=== PATIENT | female | born 1985 | race Caucasian/White ===

== ENCOUNTER 2022-12-22 10:37 | Emergency (ER) | payer BC, OTHER, SELFPAY ==
[2022-12-22 10:59] VITALS: BP 125/83; PULSE 87; RESP 16; TEMP 36.4; O2SAT 100
--- NOTE | 2022-12-22 11:30 | ED.URI ---
HPI - URI/Sore Throat General Chief Complaint: Upper Respiratory Infection Stated Complaint: wants strep test Time Seen by Provider: 12/22/22 11:30 Source: patient, RN notes reviewed and old records reviewed Mode of arrival: ambulatory Limitations: no limitations History of Present Illness HPI Narrative: 37-year-old female who presents to [facility] with complaints of low-grade fever and headache since . Patient reports that she has been running temperature of 99-100F since with no acute sore throat or cough noted. Patient reports that she has been taking Tylenol for her complaints of headache and fevers. Patient reports that her daughter tested positive for strep at her pediatricians office on . MD elicited complaint: cough and sore throat Onset (ago): day(s) (2) Related Data Allergies Allergy/AdvReac Type Severity Reaction Status Date / Time Penicillins Allergy Rash Verified 12/22/22 11:29 Review of Systems Review of Systems: CONSTITUTIONAL: Reports malaise, chills, sweats, or fever. EYES: Denies visual changes, redness, or discharge. ENT: Reports rhinorrhea, congestion, sinus pain,no otalgia positive for sore throat. CARDIOVASCULAR: Denies chest pain, palpitations, or edema. RESPIRATORY: Reports cough.? Denies dyspnea. GASTROINTESTINAL: Denies abdominal pain, nausea, vomiting, diarrhea SKIN: Denies rash or itching. MUSCULOSKELETAL: Denies myalgia. NEUROLOGIC: positive headache. All systems reviewed & are unremarkable except as noted in HPI and below PMFSH Past Medical History Medical History (Updated 12/22/22 @ 20:50 by Madina Ryder NP) History of prediabetes Social History Social History (Updated 12/22/22 @ 20:50 by Madina Ryder NP) Smoking status: Never smoker Alcohol intake: current Alcohol use details: rare social Substance use type: does not use Living arrangements: with family Gender identity (if verbalized by the patient): Female Comments At time of signature, agree with nursing past medical, surgical, social and family history. There is no relevant family history pertinent to the presenting complaint Exam Narrative: GENERAL: Well-appearing, well-nourished, and in no acute distress. HEAD: Normocephalic EYES: PERRLA, conjunctivae clear ENT: Nares clear, turbinates edematous and erythematous, clear discharge. Mucous membranes moist. TM pearly marti with dull light reflex bilaterally; no tragal tenderness. Oropharynx erythematous without lesions. Tonsils red enlarged and without exudate, no drooling, no hoarseness, no trismus, uvula midline.some post nasal drainage noted. NECK: Supple. lymphadenopathy CHEST: Clear to auscultation, breath sounds equal. No wheezing, rhonchi, rales, or stridor. No respiratory distress, speaks in full sentences. HEART: Regular rate and rhythm. No murmur heard. SKIN: Warm, dry, no rash. NEURO: Alert and oriented x3. PSYCH: Normal mood and affect Course Course Emergency Course: Patient is aware of diagnosis, understands and agrees to treatment plan.? Anticipatory guidance given.? Patient agrees to follow-up as directed and is aware of reasons to seek care at the emergency department. Portions of this record may have been created with voice recognition software Level of Care: Express Care Visit Vital Signs Vital signs: Vital Signs Temperature 36.4 C 12/22/22 10:59 Pulse Rate 87 12/22/22 10:59 Respiratory Rate 16 12/22/22 10:59 Blood Pressure 125/83 12/22/22 10:59 Pulse Oximetry 100 12/22/22 10:59 Temperature 36.4 C 12/22/22 10:59 Pulse Rate 87 12/22/22 10:59 Respiratory Rate 16 12/22/22 10:59 Blood Pressure 125/83 12/22/22 10:59 Pulse Oximetry 100 12/22/22 10:59 Reviewed MDM - URI/Sore Throat MDM Narrative Medical decision making narrative: Differential diagnosis considered: Drummond virus, strep pharyngitis, allergic rhinitis, upper respiratory
== END 2022-12-22 11:57 | disposition home or self-care (01) ==
PROVIDERS: Emergency Provider Registered Nurse
DX: J02.0 Streptococcal pharyngitis (principal)
CPT/HCPCS: 87880; 99213; G0463

== ENCOUNTER 2023-03-22 08:30 | Outpatient (CLI) | payer BC, SELFPAY ==
[2023-03-23 08:41] LABS: Alanine Aminotransferase 18 U/L (6-35); Albumin Level 4.2 g/dL (3.5-5.1); Alkaline Phosphatase 74 U/L (38-126); Anion Gap 7 mmol/L (8-16); Aspartate Amino Transferase 29 U/L (14-36); Bilirubin,Total 0.8 mg/dL (0.2-1.3); Blood Urea Nitrogen 10 mg/dL (7-17); Calcium 8.6 mg/dL (8.4-10.2); Carbon Dioxide 28 mmol/L (22-30); Chloride 105 mmol/L (98-107); Cholesterol 183 mg/dL (0-200); Estimated Glomerular Filt Rate > 60; Glucose 104 mg/dL (65-110); HDL Direct 45 mg/dL; Potassium 4.4 mmol/L (3.4-5.0); Sodium 140 mmol/L (137-145); Triglycerides 105 mg/dL (<150)
[2023-03-23 08:51] LABS: LDL Cholesterol Direct 102 mg/dL
[2023-03-23 08:53] LABS: Basophils Percent Auto 0.4 % (0.2-1.2); Eosinophils Percent Auto 0.7 % (0-4.4); Hematocrit 41.9 % (37.0-47.0); Hemoglobin 13.6 g/dL (12.0-15.0); Immature Granulocyte Absolute 0.01 K/mm3 (0.00-0.031); Immature Granulocyte Percent A 0.2 % (0-0.5); Lymphocytes Absolute Auto 1.83 K/mm3 (0.9-3.2); Lymphocytes Percent Auto 32.8 % (18.3-44.2); Mean Corpuscular HGB Conc 32.5 g/dl (32-36); Mean Corpuscular Hemoglobin 29.6 pg (26-34); Mean Corpuscular Volume 91.3 fl (80-100); Monocytes Absolute Auto 0.4 K/mm3 (0.1-0.6); Neutrophils Absolute Auto 3.3 K/mm3 (1.3-6.7); Neutrophils Percent Auto 58.9 % (45.5-73.1); Platelet Count Result 251 k/mm3 (150-375); Red Blood Count 4.59 M/mm3 (4.2-5.4); Red Cell Distribution Width 13.3 % (11.5-14.5); White Blood Count 5.6 K/mm3 (4.5-10.0)
[2023-03-23 09:15] LABS: Hemoglobin A1C 6.2 % (<5.7)
[2023-03-23 09:40] LABS: Creatinine Urine 106.8 mg/dL
[2023-03-23 09:59] LABS: MALB Creatinine Ratio < 5.6 mg/g (0-30); Microalbumin Urine Random < 6.0 mg/L (0-16.7)
== END 2023-03-22 08:31 | disposition home or self-care (01) ==
LOC: ANHGOSHLAB 08:31
PROVIDERS: PCP Internal Medicine; Visit Provider Nurse Practitioner
DX: R73.03 Prediabetes (principal)
CPT/HCPCS: 36415; 80053; 80061; 82043; 83036; 84443; 85025

== ENCOUNTER 2023-05-06 11:06 | Emergency (ER) | payer BC, SELFPAY ==
[2023-05-06 11:21] VITALS: BP 132/90; PULSE 69; RESP 16; TEMP 36.4; O2SAT 100
--- NOTE | 2023-05-06 11:41 | ED.URI ---
HPI - URI/Sore Throat General Chief Complaint: Upper Respiratory Infection Stated Complaint: Chest / Cold / Flu Systems Time Seen by Provider: 05/06/23 11:25 Source: patient Mode of arrival: ambulatory Limitations: no limitations History of Present Illness HPI Narrative: Cassie is a 37-year-old female patient presenting to the clinic today with complaints of cough, runny nose, body aches, chills, and fever x4 days. She reports highest fever was 102? F. no known exposure to anyone with COVID, flu, or strep. Did take 2 at home COVID test and both of them were negative. MD elicited complaint: sore throat and nasal congestion Related Data Allergies Allergy/AdvReac Type Severity Reaction Status Date / Time Penicillins Allergy Rash Verified 05/06/23 11:34 Review of Systems Review of Systems: Pertinent positives per HPI. Patient denies any rash, headache, visual changes, dizziness, shortness of breath, chest pain, palpitations, nausea, vomiting, diarrhea, constipation, abdominal pain, or any urinary issues. [facility] Past Medical History Medical History History of prediabetes Prediabetes Family History Family History Mother Diabetes mellitus Hypertension Sibling Depression Anxiety Grandparent Diabetes mellitus Social History Social History Smoking status: Never smoker Alcohol intake: current Alcohol use details: rare social Substance use type: does not use Lack of Transportation: No Lack of Food: Never True Current Housing: I Have Housing Concerned About Future Housing: No Difficulty Paying Gas/Electric Bills: No Difficulty Paying for Meds: No Currently Unemployed: No Education: Master's Degree or Higher Difficulty w/ Childcare or Family Care: No Living arrangements: with family Gender identity (if verbalized by the patient): Female Agree to blood products: No Comments At the time of my signature, I reviewed and agree with the nursing past medical, surgical, social, and family history. There is no relevant family history pertinent to the patient complaint. Exam Narrative: General: Well-developed, well nourished, in no apparent distress Head: Normocephalic, atraumatic Eyes: Pupils equally round and reactive to light bilaterally, EOM intact, sclera and conjunctive clear, no discharge, lids normal Ears: TMs intact and congested, ear canals clear, no drainage, grossly hearing normal. Nose: Nares patent, clear nasal discharge, no inflammation, no sinus tenderness. Mouth: Oral pharynx red without lesions or masses, good dentition, MMM. Neck: Supple, trachea midline, no enlargement of anterior or posterior cervical nodes, no thyroid masses or goiter palpable. Cardio: Regular rate and rhythm, s1 and s2 normal, no murmur appreciated. Resp: Clear to auscultation bilaterally, no rhonchi, rales, wheezing or rubs Course Course Emergency Course: Portions of this record may have been created with voice recognition software. Level of Care: Express Care Visit Vital Signs Vital signs: Vital Signs Temperature 36.4 C L 05/06/23 11:21 Pulse Rate 69 05/06/23 11:21 Respiratory Rate 16 05/06/23 11:21 Blood Pressure 132/90 05/06/23 11:21 Pulse Oximetry 100 05/06/23 11:21 Temperature 36.4 C L 05/06/23 11:21 Pulse Rate 69 05/06/23 11:21 Respiratory Rate 16 05/06/23 11:21 Blood Pressure 132/90 05/06/23 11:21 Pulse Oximetry 100 05/06/23 11:21 Vital signs reviewed MDM - URI/Sore Throat MDM Narrative Medical decision making narrative: At the time of visit patient is resting comfortably on the exam table. Strep screen and influenza testing was performed. Strep was negative however influenza a was positive. Patient does not meet criteria for Tamiflu as her symptoms
== END 2023-05-06 11:47 | disposition home or self-care (01) ==
PROVIDERS: Emergency Provider Nurse Practitioner Family; PCP Nurse Practitioner
DX: J10.1 Influenza due to other identified influenza virus with other respiratory manifestations (principal); R73.03 Prediabetes
CPT/HCPCS: 87081; 87804; 87880; 99213; G0463

== ENCOUNTER 2024-03-11 08:32 | Outpatient (CLI) | payer BC, SELFPAY ==
[2024-03-11 20:09] LABS: Basophils Percent Auto 0.4 % (0.2-1.2); Eosinophils Percent Auto 0.4 % (0-4.4); Hematocrit 41.6 % (37.0-47.0); Hemoglobin 13.4 g/dL (12.0-15.0); Immature Granulocyte Absolute 0.01 K/mm3 (0.00-0.031); Immature Granulocyte Percent A 0.2 % (0-0.5); Lymphocytes Absolute Auto 1.76 K/mm3 (0.9-3.2); Lymphocytes Percent Auto 34.3 % (18.3-44.2); Mean Corpuscular HGB Conc 32.2 g/dl (32-36); Mean Corpuscular Hemoglobin 29.5 pg (26-34); Mean Corpuscular Volume 91.6 fl (80-100); Mean Platelet Volume 12.1 fl (7.4-10.4); Monocytes Absolute Auto 0.5 K/mm3 (0.1-0.6); Neutrophils Absolute Auto 2.9 K/mm3 (1.3-6.7); Neutrophils Percent Auto 55.7 % (45.5-73.1); Platelet Count Result 243 k/mm3 (150-375); Red Blood Count 4.54 M/mm3 (4.2-5.4); Red Cell Distribution Width 13.6 % (11.5-14.5); White Blood Count 5.1 K/mm3 (4.5-10.0)
[2024-03-11 20:10] LABS: Hemoglobin A1C 5.6 % (<5.7)
[2024-03-11 20:17] LABS: Alanine Aminotransferase 11 U/L (6-35); Albumin Level 4.2 g/dL (3.5-5.1); Alkaline Phosphatase 60 U/L (38-126); Anion Gap 7 mmol/L (4-12); Aspartate Amino Transferase 27 U/L (14-36); Bilirubin,Total 0.7 mg/dL (0.2-1.3); Blood Urea Nitrogen 9 mg/dL (7-17); Calcium 9.1 mg/dL (8.4-10.2); Carbon Dioxide 25 mmol/L (22-30); Chloride 109 mmol/L (98-107); Cholesterol 160 mg/dL (0-200); Estimated Glomerular Filt Rate > 60; Glucose 109 mg/dL (65-110); HDL Direct 41 mg/dL; Potassium 4.2 mmol/L (3.4-5.0); Sodium 141 mmol/L (137-145); Triglycerides 72 mg/dL (<150)
[2024-03-11 20:28] LABS: LDL Cholesterol Direct 104 mg/dL
== END 2024-03-11 08:33 | disposition home or self-care (01) ==
LOC: ANHGOSHLAB 08:36
PROVIDERS: PCP Nurse Practitioner; Visit Provider Nurse Practitioner
DX: R73.03 Prediabetes (principal); Z13.220 Encounter for screening for lipoid disorders; Z13.29 Encounter for screening for other suspected endocrine disorder
CPT/HCPCS: 36415; 80053; 80061; 83036; 85025

== ENCOUNTER 2024-03-20 08:42 | Outpatient (CLI) | payer BC, SELFPAY | END 2024-03-20 08:43 | disposition home or self-care (01) | LOC: ANHGOSHLAB 08:43 | PROVIDERS: PCP Internal Medicine; Visit Provider Nurse Practitioner | DX: R53.83 Other fatigue (principal) | CPT/HCPCS: 36415; 82306; 84443 ==

== ENCOUNTER 2024-12-29 19:42 | Emergency (ER) | payer BC, SELFPAY ==
[2024-12-29 20:01] VITALS: BP 115/80; PULSE 64; RESP 16; TEMP 36.9; O2SAT 100
--- NOTE | 2024-12-29 20:12 | ED.SKABFB ---
HPI - Skin/Abscess/Foreign Bdy General Chief complaint: Skin/Abscess/Foreign Body Stated complaint: Cellulitis Source: patient and RN notes reviewed Mode of arrival: ambulatory Limitations: no limitations History of Present Illness HPI narrative: Patient is a 39-year-old female who presents to the [facility] complaints of redness, and warmth to the right side of her face. She states that she woke up with the erythema, warmth, and tenderness. She states that her symptoms are similar to that she has experienced in the past with cellulitis. She denies any drainage. Denies recent fever. Related Data Home Medications ?Medication ?Instructions ?Recorded ?Confirmed ?Last Taken ?Type ferrous sulfate 137 mg (45 mg 137 mg PO DAILY 09/25/24 09/25/24 Unknown History iron) tablet,extended release Allergies Allergy/AdvReac Type Severity Reaction Status Date / Time Penicillins Allergy Rash Verified 12/29/24 20:13 Review of Systems Review of Systems: CONSTITUTIONAL: Denies fever, chills, or sweats. EYES: Denies visual changes, redness, or discharge. ENT: Denies otalgia and sore throat CARDIOVASCULAR: Denies chest pain, palpitations, or edema. RESPIRATORY: Denies cough or dyspnea. GASTROINTESTINAL: Denies abdominal pain, nausea, vomiting, or diarrhea. GENITOURINARY: Denies dysuria or hematuria. SKIN: Reports erythematous rash to right side of face. MUSCULOSKELETAL: Denies back pain, joint pain, or myalgia. NEUROLOGIC: Denies headache, numbness, or weakness. Pertinent positives per HPI. PENDING SALE TO [facility] Past Medical History Medical History Prediabetes History of prediabetes Family History Family History Mother Diabetes mellitus Hypertension Sibling Depression Anxiety Grandparent Diabetes mellitus Social History Social History Smoking status: Never smoker Alcohol intake: current Alcohol use details: rare social Substance use type: does not use Do You Feel Safe in your Home?: Yes Lack of Transportation: No Lack of Food: Never True Current Housing: I Have Housing Concerned About Future Housing: No Difficulty Paying Gas/Electric Bills: No Difficulty Paying for Meds: No Currently Unemployed: No Education: Master's Degree or Higher Difficulty w/ Childcare or Family Care: No Living arrangements: with family Gender identity (if verbalized by the patient): Female Agree to blood products: No Comments At the time of my signature, I reviewed and agree with the nursing past medical, surgical, social, and family history. There is no relevant family history pertinent to the patient complaint. Exam Narrative: GENERAL: This is a well-nourished, well-developed patient, in no apparent distress. HEAD: normocephalic, atraumatic. EYES: Sclera clear/white. Vision is grossly intact. EARS: External ears normal. Hearing grossly intact. NOSE: External nose normal with no obvious nasal discharge, nares without redness, no rhinorrhea. THROAT: Mucous membranes moist, posterior pharynx clear. NECK: Neck supple, non-tender without lymphadenopathy, masses or thyromegaly. CARDIOVASCULAR: Regular rate and rhythm without murmurs, gallops, or rubs. RESPIRATORY: Clear to auscultation. Breath sounds equal bilaterally. No wheezes, rales, or rhonchi. GASTROINTESTINAL: Abdomen soft, non-tender, nondistended. Bowel sounds are active. No hepato-splenomegaly, or palpable masses. No guarding. SKIN: Maculopapular erythematous rash that is warm and tender; consistent with facial cellulitis. NEURO: awake, alert, and oriented to person, place and time. There were no obvious focal neurologic abnormalities. Course Course Level of Care: Express Care Visit Vital Signs Vital signs: Vital Signs Temperature 98.5 F 12/29/24 20:01 Pulse Rate 64 12/29/24 20:01 Respiratory Rate 16 12/29/24 20:01 Blood Pressure 115/80 12/29/24 20:01 Pulse Oximetry 100 12/29/24 20:01 Temperature 98.5 F 12/29/24 20:01 Pulse Rate 64 12/29/24 20:01 Respiratory Rate 16 12/29/24 20:01 Blood Pressure 115/80 12/29/24 20:01 Pulse Oximetry 100 12/29/24 20:01 Reviewed MDM - Skin/Abscess/Foreign Bdy MDM Narrative Medical decision making narrative: Clean with soap and water only; Avoid using alcohol and peroxide. Elevate the affected area if possible Alternate Tylenol/ibuprofen for as needed for pain Acetaminophen(Tylenol) 650-1000mg every 4-6hours with max of 4000mg/day. Nonsteroidal anti-inflammatory agent (NSAIDs-ibuprofen): 400mg every 4-6hours with max 2400mg/day Take antibiotic until it's gone. Please schedule a follow up visit with your personal physician for further evaluation and treatment within 3-5days OR if your symptoms persist, change or worsen significantly before you can contact your personal physician then please, without delay, go to the emergency department for further evaluation. Differential Diagnosis Differential diagnosis: Likely urticaria, cellulitis, eczema, impetigo and contact dermatitis Discharge Plan Discharge Clinical Impression: Cellulitis of face Patient Disposition: Home, Self-Care Condition: Stable Instructions: Cellulitis (ED) Additional Instructions: Clean with soap and water only; Avoid using alcohol and peroxide. Elevate the affected area if possible Alternate Tylenol/ibuprofen for as needed for pain Acetaminophen(Tylenol) 650-1000mg every 4-6hours with max of 4000mg/day. Nonsteroidal anti-inflammatory agent (NSAIDs-ibuprofen): 400mg every 4-6hours with max 2400mg/day Take antibiotic until it's gone. Please schedule a follow up visit with your personal physician for further evaluation and treatment within 3-5days OR if your symptoms persist, change or worsen significantly before you can contact your personal physician then please, without delay, go to the emergency department for further evaluation. Patient Language: Citizen Of [place] Prescriptions: New doxycycline hyclate 100 mg capsule 100 mg PO BID 10 Days Qty: 20 0RF No Action ferrous sulfate 137 mg (45 mg iron) tablet extended release 137 mg PO DAILY Mounjaro 5 mg/0.5 mL pen injector 5 mg subcut WEEKLY Qty: 2 0RF Follow-up/Referrals: PHYSICIAN,STRANNER [Primary Care Provider] - Time of Disposition: 20:16
== END 2024-12-29 20:17 | disposition home or self-care (01) ==
PROVIDERS: Emergency Provider Nurse Practitioner
DX: L03.211 Cellulitis of face (principal); R73.03 Prediabetes
CPT/HCPCS: 99213; G0463

== ENCOUNTER 2025-04-16 08:13 | Outpatient (CLI) | payer BC, SELFPAY ==
--- OUTSIDE RECORDS SUMMARY | 2025-04-16 08:20 | XMS_ITS | Continuity of Care Document ---
Author Organization [facility] Address [address] [place] [address] Phone Care Team Providers Care Tip Inserter Name Role Phone Magdaleno Hewitt MD Unavailable Unavailable Medications Medication Instructions Dosage Effective Dates (start - stop) Status Comments Zovia E (28) 1 mg-35 mcg Tab take 1 tablet by ORAL route every day - No Longer Active Advance Directives Directive Yes / No Effective Date File Name No Information Encounters Encounter Description Practice Location Reason(s) For Visit Diagnoses Date Provider Providers Copied on Encounter [facility], [address] [place], [address], [place] tel:[phone] [facility] Main No Information Marcelina Dolan. [address] [place], [address], [place]. tel:[phone] Family History Family Member Type Diagnosis Age At Onset No Information Payers Payer name Insurance type Covered republican ID Authoriza tion(s) No Information Social History Type Description Quantity Date Captured Comments Sex Female Smoking Status No Information Chief Complaint And Reason For Visit No Information Reason For Referral Reason For Referral No Information History Of Present Illness Encounter Date Complaint History Of Prese nt Illness No Information Functional Status Date Functional Assessmen t No Information Instructions Date Instruction Additional Infor mation No Information Assessments Type Assessment Date No Information Patient Care Teams Name Effective Dates (start - stop) Status Members No Information
--- OUTSIDE RECORDS SUMMARY | 2025-04-16 08:20 | XMS_ITS | Continuity of Care Document ---
Author Organization [facility] Address [address] [place] [address] Phone Care Team Providers Care Career Development Specialist Name Role Phone MD GIOVANY, JHONATHAN Unavailable Unavailable Advance Directives Directive Yes / No Effective Date File Name No Information Encounters Encounter Description Practice Location Reason(s) For Visit Diagnoses Date Provider Providers Copied on Encounter [facility], [address], [address], tel:[phone] [facility] No Information 6 MD JHONATHAN ADAIR. [address] [facility] [address], [place], [id number] , . tel:[phone] Referring Provider: THANG RUTLEDGE, [address] [place], [address]. tel:[phone] Family History Family Member Type Diagnosis Age At Onset No Information Payers Payer name Insurance type Covered libertarian ID Authoriza tion(s) [facility] [id number] Social History Type Description Quantity Date Captured Comments Sex Female Smoking Status No Information Chief Complaint And Reason For Visit No Information History Of Present Illness Encounter Date Complaint History Of Prese nt Illness No Information Instructions Date Instruction Additional Infor mation No Information Assessments Type Assessment Date No Information
[2025-04-16 16:35] LABS: Basophils Percent Auto 0.4 % (0.2-1.2); Eosinophils Percent Auto 0.4 % (0-4.4); Hematocrit 43.7 % (37.0-47.0); Hemoglobin 13.7 g/dL (12.0-15.0); Immature Granulocyte Absolute 0.01 K/mm3 (0.00-0.031); Immature Granulocyte Percent A 0.2 % (0-0.5); Lymphocytes Absolute Auto 1.76 K/mm3 (0.9-3.2); Lymphocytes Percent Auto 38.3 % (18.3-44.2); Mean Corpuscular HGB Conc 31.4 g/dl (32-36); Mean Corpuscular Hemoglobin 30.2 pg (26-34); Mean Corpuscular Volume 96.3 fl (80-100); Mean Platelet Volume 11.6 fl (7.4-10.4); Monocytes Absolute Auto 0.4 K/mm3 (0.1-0.6); Monocytes Percent Auto 7.6 % (2.6-8.5); Neutrophils Absolute Auto 2.4 K/mm3 (1.3-6.7); Neutrophils Percent Auto 53.1 % (45.5-73.1); Platelet Count Result 211 k/mm3 (150-375); Red Blood Count 4.54 M/mm3 (4.2-5.4); White Blood Count 4.6 K/mm3 (4.5-10.0)
[2025-04-16 17:35] LABS: Alanine Aminotransferase 14 U/L (6-35); Albumin Level 4.3 g/dL (3.5-5.1); Alkaline Phosphatase 45 U/L (38-126); Anion Gap 7 mmol/L (4-12); Aspartate Amino Transferase 58 U/L (14-36); Blood Urea Nitrogen 10 mg/dL (7-17); Calcium 9.1 mg/dL (8.4-10.2); Carbon Dioxide 25 mmol/L (22-30); Chloride 107 mmol/L (98-107); Cholesterol 163 mg/dL (0-200); Estimated Glomerular Filt Rate > 60; Glucose 96 mg/dL (65-110); HDL Direct 60 mg/dL; Sodium 139 mmol/L (137-145); Triglycerides 89 mg/dL (<150)
[2025-04-16 17:46] LABS: LDL Cholesterol Direct 64 mg/dL
[2025-04-16 18:26] LABS: Vitamin D 25 Hydroxy 30.5 ng/mL
[2025-04-16 20:43] LABS: Hemoglobin A1C 5.6 % (<5.7)
== END 2025-04-16 08:14 | disposition home or self-care (01) ==
LOC: ANHGOSHLAB 08:14
PROVIDERS: Visit Provider Nurse Practitioner
DX: R73.03 Prediabetes (principal); R53.83 Other fatigue
CPT/HCPCS: 36415; 80053; 80061; 82306; 83036; 85025

== ENCOUNTER 2025-04-21 09:10 | Outpatient (CLI) | payer BC, SELFPAY ==
--- OUTSIDE RECORDS SUMMARY | 2025-04-21 09:16 | XMS_ITS | Continuity of Care Document ---
Author Name [facility] Organization [facility] Care Team Providers Care Junior Accounting Clerk Name Role Phone [facility] Unavailable Unavailable Problems Combined list of problems from Department of Defense and Veterans Affairs facilities. It does not include entries that were removed or entered in error. Problem Status Onset Date Problem Type Date of Resolution Comments Source Personal history of gestational diabetes Active 6 Condition DoD Pilar cyst Active 6 Condition [facility] Type 2 diabetes mellitus without complications Active Condition DoD CERVICAL POLYPS Active Condition [facility] Cervix Sample Taken For Pap Smear Inactive Condition [facility] NORMAL ROUTINE HISTORY AND PHYSICAL ADULT (18-65) Inactive Condition [facility] visit for: administrative purpose Inactive Condition [facility] visit for: issue repeat prescription Inactive Condition [facility] ASTIGMATISM - REGULAR Active Condition [facility] REFRACTIVE ERROR - MYOPIA Active Condition [facility] PREGLAUCOMA OCULAR HYPERTENSION Active Condition [facility] FINGER SPRAIN RIGHT MIDDLE FINGER DIP Inactive Condition [facility] visit for: issue medical certificate Inactive Condition immunizations u p to date; pt to have ppd placed today by immunization clinic [facility] Patient Counseling: Inactive Condition DoD Allergies, Adverse Reactions, Alerts Combined list of allergies from Department of Defense and Veterans Affairs facilities. It does not include entries that were removed or entered in error. Substance Category Reaction Severity Reaction type Status Date Reported Comments Source Penicillins Propensity to adverse reactions to substance Unknown Active 3 Unknown Organizati on Immunizations Combined list of available immunizations from the Department of Defense and Veterans Affairs facilities. Immunization Series Date Given Administered By Site Reaction Lot Number CVX Code Drug Master At Arms Status Comments Source COVID-19, mRNA, LNP-S, PF, 100 mcg or 50 mcg dose 2020 ALUL, () Not Given COVID-19, mRNA, LNP-S, PF, 100 mcg or 50 mcg dose DoD Influenza, injectable, quadrivalent, preservative free 1 2020 Unknown, Provider RUFINA TorresKlpal (SKB) complet ed Influenza , injectabl e, quadrival ent, preservat jorge free [facility] COVID Vaccine Moderna 2020 zzLef t Arm [id number] complet ed COVID Vaccine Moderna 12/16/20 Given Ambulat ory Pharmac y SARS-COV-2 (COVID-19) vaccine, mRNA, spike protein, LNP, preservative free, 100 mcg or 50 mcg dose 1 2020 Unknown, Provider [id number] Moderna [employer] (MOD) complet ed SARS-COV- 2 (COVID-19 ) vaccine, mRNA, spike protein, LNP, preservat jorge free, 100 mcg or 50 mcg dose DoD COVID Vaccine Moderna 2019 [facility] Arm [id number] complet ed COVID Vaccine Moderna 11/16/20 Given Ambulat ory Pharmac y SARS-COV-2 (COVID-19) vaccine, mRNA, spike protein, LNP, preservative free, 100 mcg or 50 mcg dose 1 2019 Unknown, Provider [id number] 207 Moderna [employer] (MOD) complet ed SARS-COV- 2 (COVID-19 ) vaccine, mRNA, spike protein, LNP, preservat jorge free, 100 mcg or 50 mcg dose DoD influenza, injectable, quadrivalent- pf 2019 [facility] Arm [id number] 150 Seqirus complet ed influenza , injectabl e, quadrival ent-pf 08/26/20 Given Ambulat ory Pharmac y Influenza, injectable, quadrivalent, preservative free 1 2019 Unknown, Provider [id number] 206 150 Seqirus (SEQ) complet ed Influenza , injectabl e, quadrival ent, preservat jorge free DoD influenza, injectable, quadrivalent- pf 2018 [facility] Arm [id number] 150 Seqirus complet ed influenza , injectabl e, quadrival ent-pf 08/28/19 Given Ambulat ory Pharmac y Influenza, injectable, quadrivalent, preservative free 1 2018 Unknown, Provider [id number] 150 Seqirus (SEQ) complet ed Influenza , injectabl e, quadrival ent, preservat jorge free DoD Marshallese Encephalitis IM 2018 [facility] Arm [id number] 134 Valneva complet ed Marshallese Encephali tis IM 05/07/19 Given Ambulat ory Pharmac y Marshallese Encephalitis vaccine for intramuscular administratio n 1 2018 Unknown, Provider [id number] 134 Valneva (YOSSI) complet ed Marshallese Encephali tis vaccine for intramusc ular administr ation DoD Marshallese Encephalitis IM 2018 zzTimur Arm [id number] 134 Valneva complet ed Marshallese Encephali tis IM 12/30/18 Given Ambulat ory Pharmac y Marshallese Encephalitis vaccine for intramuscular administratio n 1 2018 Unknown, Provider [id number] 134 Valneva (YOSSI) complet ed [place]ese Encephali tis vaccine for intramusc ular administr ation DoD influenza, seasonal, injectable 2015 zzLef t Arm [id number] 141 Seqirus complet ed influenza , seasonal, injectabl e 08/10/16 Given Ambulat ory Pharmac y tetanus, diphtheria, acellular pertu is 2015 zzLef t Arm [id number] 115 [facility] complet ed tetanus, diphtheri a, acellular pertussis 08/10/16 Given Ambulat ory Pharmac y tetanus toxoid, reduced diphtheria toxoid, and acellular pertu is vaccine, adsorbed 1 2015 Unknown, Provider [id number] 115 [facility] (SKB) complet ed tetanus toxoid, reduced diphtheri a toxoid, and acellular pertussis vaccine, adsorbed DoD Influenza, seasonal, injectable 1 2015 Unknown, Provider [id number] 141 Seqirus (SEQ) complet ed Influenza , seasonal, injectabl e DoD tuberculin purified protein derivative 2014 zzLef t Arm [id number] 96 sanofi pasteur complet ed Patient Tolerance : Negative Ambulat ory Pharmac y tuberculin skin test; purified protein derivative solution, intradermal 1 2014 Unknown, Provider [id number] 96 Sanofi Pasteur (PMC) complet ed tuberculi n skin test; purified protein derivativ e solution, intraderm al DoD influenza, seasonal, injectable [facility] [id number] 141 sanofi pasteur complet ed influenza , seasonal, injectabl e 12/21/13 Given Ambulat ory Pharmac y typhoid Vi capsular polysaccharid e vac 2013 zzLef t Arm [id number] sanofi pasteur complet ed typhoid Vi capsular polysacch aride vac 12/21/13 Given Ambulat ory Pharmac y hepatitis A adult vaccine 2013 [facility] Arm [id number] 52 GlaxoSmithKli ne complet ed hepatitis A adult vaccine 12/21/13 Given Ambulat ory Pharmac y hepatitis A vaccine, adult dosage 1 2013 Unknown, Provider [id number] 52 SmithKline (SKB) complet ed hepatitis A vaccine, adult dosage DoD typhoid Vi capsular polysaccharid e vaccine 1 2013 Unknown, Provider [id number] Sanofi Pasteur ([facility]) complet ed typhoid Vi capsular polysacch aride vaccine DoD Influenza, seasonal, injectable 1 2013 Unknown, Provider [id number] 141 Sanofi Pasteur (PMC) complet ed Influenza , seasonal, injectabl e DoD tetanus, diphtheria, acellular pertu is 2009 TRANSCR IBED 115 complet ed tetanus, diphtheri a, acellular pertussis 08/16/10 Given Ambulat ory Pharmac y tetanus toxoid, reduced diphtheria toxoid, and acellular pertu is vaccine, adsorbed 1 2009 Unknown, Provider 115 Transcribed (TRS) complet ed tetanus toxoid, reduced diphtheri a toxoid, and acellular pertussis vaccine, adsorbed DoD tuberculin purified protein derivative 2009 TRANSCR IBED 96 complet ed Patient Tolerance : Negative Ambulat ory Pharmac y tuberculin skin test; purified protein derivative solution, intradermal 1 2009 Unknown, Provider 96 Transcribed (TRS) complet ed tuberculi n skin test; purified protein derivativ e solution, intraderm al DoD varicella virus vaccine 2009 TRANSCR IBED 21 complet ed varicella virus vaccine 03/06/10 Given Ambulat ory Pharmac y varicella virus vaccine 1 2009 Unknown, Provider 21 Transcribed (TRS) complet ed varicella virus vaccine DoD measles/mumps /rubella virus vaccine 2008 TRANSCR IBED 03 complet ed measles/m umps/rube lla virus vaccine 03/23/09 Given Ambulat ory Pharmac y measles, mumps and rubella virus vaccine 1 2008 Unknown, Provider 03 Transcribed (TRS) complet ed measles, mumps and rubella virus vaccine DoD tuberculin purified protein derivative 2008 TRANSCR IBED 96 complet ed Patient Tolerance : Negative Ambulat ory Pharmac y tuberculin skin test; purified protein derivative solution, intradermal 1 2008 Unknown, Provider 96 Transcribed (TRS) complet ed tuberculi n skin test; purified protein derivativ e solution, intraderm al DoD tuberculin purified protein derivative 2006 zzLef t Arm [id number] 96 sanofi pasteur complet ed Patient Tolerance : Negative Ambulat ory Pharmac y tuberculin skin test; purified protein derivative solution, intradermal 1 2006 Unknown, Provider [id number] 96 Sanofi Pasteur (PMC) complet ed tuberculi n skin test; purified protein derivativ e solution, intraderm al DoD tuberculin purified protein derivative 2002 zzLef t Arm [id number] 96 sanofi pasteur complet ed Patient Tolerance : Negative Ambulat ory Pharmac y meningococcal polysaccharid e (MPSV4) 2002 zzLef t Arm [id number] sanofi pasteur complet ed meningoco ccal polysacch aride (MPSV4) 03/10/03 Given Ambulat ory Pharmac y tetanus-dipht h toxoids (Td) adult/adol 2002 zzLef t Arm [id number] 09 sanofi pasteur complet ed tetanus-d iphth toxoids (Td) adult/ado l 03/10/03 Given Ambulat ory Pharmac y hepatitis B pediatric/ado lescent 2002 zzLef t Arm [id number] 08 GlaxoSmithKli ne complet ed hepatitis B pediatric /adolesce nt 03/10/03 Given Ambulat ory Pharmac y hepatitis B vaccine, pediatric or pediatric/ado lescent dosage 1 2002 Unknown, Provider [id number] 08 BrianKline (SKB) complet ed hepatitis B vaccine, pediatric or pediatric /adolesce nt dosage DoD tetanus and diphtheria toxoids, adsorbed, preservative free, for adult use (2 Lf of tetanus toxoid and 2 Lf of diphtheria toxoid) 1 2002 Unknown, Provider [id number] 09 Sanofi Pasteur (PMC) complet ed tetanus and diphtheri a toxoids, adsorbed, preservat jorge free, for adult use (2 Lf of tetanus toxoid and 2 Lf of diphtheri a toxoid) DoD meningococcal polysaccharid e vaccine (MPSV4) 1 2002 Unknown, Provider [id number] 32 Sanofi Pasteur (PMC) complet ed meningoco ccal polysacch aride vaccine (MPSV4) DoD tuberculin skin test; purified protein derivative solution, intradermal 1 2002 Unknown, Provider [id number] 96 Sanofi Pasteur (PMC) complet ed tuberculi n skin test; purified protein derivativ e solution, intraderm al DoD measles/mumps /rubella virus vaccine 1990 Transcr ibed 03 Unknown complet ed measles/m umps/rube lla virus vaccine 12/22/90 Given Ambulat ory Pharmac y poliovirus vaccine, live, oral 1990 zzLef t Arm 02 complet ed polioviru s vaccine, live, oral 12/22/90 Given Ambulat ory Pharmac y trivalent poliovirus vaccine, live, oral 5 1990 Unknown, Provider 02 () complet ed trivalent polioviru s vaccine, live, oral DoD measles, mumps and rubella virus vaccine 2 1990 Unknown, Provider Transcr ibed 03 Other (OTH) complet ed measles, mumps and rubella virus vaccine DoD measles/mumps /rubella virus vaccine 1987 Transcr ibed 03 Unknown complet ed measles/m umps/rube lla virus vaccine 11/21/87 Given Ambulat ory Pharmac y measles, mumps and rubella virus vaccine 1 1987 Unknown, Provider Transcr ibed 03 Other (OTH) complet ed measles, mumps and rubella virus vaccine DoD Encounters Combined list of: 1) Encounters from Department of Veterans Affairs facilities going backup to the last 18 months, not all VA inpatient encounters are included; 2) Encounters from the Department of Defense facilities going backup to 280 months. Location Location Details Encounter Type Encounter Number Reason For Visit Attending Provider ADM Date DC Date Status Disposition Source [employer]([facility]) TELE CONSULT [id number] [employer] SEAMUS Santana 11/04 [facility]) [facility]ss Team [facility]) OUTPATIENT [id number] discuss immuniz ation GIDEON IVEY 02/25 Released w/o Limitations [employer]) [employer](DG C GME Team H) OUTPATIENT [id number] might have broken lt middle finger WALE ERAZO 05/18 Released w/o Limitations [employer](D [facility] GME Team H) [employer]([facility] C Optometry ) OUTPATIENT [id number] eye exam MONY REDDY 08/17 Released w/o Limitations [employer]([facility] Optomet ry) [employer] TELE CONSULT [id number] Notes Entered by: THANIA BALTAZAR 20 Oct 2013 1031 ------- ------- ------- ------- -- VIRTUAL COMMUNI CATION RX REFILL WALE ERAZO 10/20 [employer]([facility] GME Team H) [employer]) TELE CONSULT [id number] Notes Entered by: JUNIOR GREEN 22 Oct 2013 1402 ------- ------- ------- ------- -- VIRTUAL COMMUNI CATION MESSAGE WALE ERAZO 10/22 [employer]([facility] GME Team H) [employer]([facility]) OUTPATIENT [id number] PAP SMEAR JUNIOR FLORES 11/19 Released w/o Limitations [employer]([facility] GME Team H) [employer]([facility]) OUTPATIENT [id number] f/u prev issue JUNIOR FLORES 11/25 Released w/o Limitations [employer]([facility] GME Team H) [employer]) TELE CONSULT [id number] Notes Entered by: Lane FLORES 26 Nov 2013 1443 ------- ------- ------- ------- -- Normal papa NELI THOMPSON 11/26 Referred for Appointment [employer]([facility] GME Team H) [employer]([facility]) TELE CONSULT [id number] Notes Entered by: JUNIOR GREEN 30 Nov 2013 1402 ------- ------- ------- ------- -- for; to (do) Centers AINSLEY [employer] WALE VIRAMONTES Ashley 11/30 [employer](D [facility] GME Team H) [employer]([facility] TELE CONSULT [id number] Notes Entered by: MARIA GUADALUPE WRIGHT 02 Dec 2013 1323 ------- ------- ------- ------- -- Bx result GRAHAM KEARNSSSDevante Gant 12/02 [employer](D [facility] GME Team H) [employer]([facility] IDo Not Use) TELE CONSULT [id number] Notes Entered by: Lane HEREDIA 10 Dec 2013 1555 ------- ------- ------- ------- -- Pap results KENDRA HEREDIA 12/10 Referred for Appointment [employer]([facility]Tea m IDo Not Use) [employer]([facility] C Infectiou s Disease) OUTPATIENT [id number] travel clinic JEANMAREI BERTRAND 12/15 Released w/o Limitations [employer](D C Infecti ous Disease ) [employer]([facility] K[facility] Not Use) TELE CONSULT [id number] Notes Entered by: Bere TANG 29 Apr 2015 1505 ------- ------- ------- ------- -- POSITIV E HOME PREGNAN CY TEST JC RODRIGUEZ 04/29 Referred for Appointment [employer]([facility]a [facility] KDo Not Use) [employer]([facility] C Obstetric s) TELE CONSULT [id number] Notes Entered by: ADRIA DARLING 23 May 2015 1029 ------- ------- ------- ------- -- ER F/U June 15yo 8wk preg w vag bleedin g + cramps no better today BALJIT GILMORE 05/23 [employer]([facility]) [employer]([facility] C Obstetric s) OUTPATIENT [id number] 8wks/ER follow up shanita seay BALJIT GILMORE 05/23 Released w/o Limitations [employer](D [facility]) [employer]([facility] C Obstetric s) TELE CONSULT [id number] Notes Entered by: ADRIA DARLING 26 May 2015 1505 ------- ------- ------- ------- -- 29yo called for HCG results post SAB BALJIT GILMORE 05/26 [employer](D [facility]st[facility]) [employer]([facility] C_ GME_Team IDo Not Use) TELE CONSULT [id number] Notes Entered by: ROMAN YANG 01 Nov 2015 1342 ------- ------- ------- ------- -- Request for labs JULES CHAN 11/01 Released to Self Care [employer]([facility] GME_Tea m IDo Not Use) [employer]([facility] C_ GME_Team IDo Not Use) OUTPATIENT [id number] NATHAN Davidson 11/28 Released w/o Limitations [employer](D GM_FH GME_Tea m IDo Not Use) [employer]([facility] C_ GME_Team IDo Not Use) TELE CONSULT [id number] Notes Entered by: NATHAN SMITH 07 Dec 2015 0913 ------- ------- ------- ------- -- Lab results IRVING GIBSON 12/07 Referred for Appointment [employer](D GM_FH GME_Tea m IDo Not Use) [employer]([facility] C_ GME_Team IDo Not Use) TELE CONSULT [id number] Notes Entered by: GEORGES FELIX 14 Feb 2016 0815 ------- ------- ------- ------- -- Request for pregnan cy test confirm DENNIS Ruff 02/13 Referred for Appointment [employer](D GMC_FH GME_Tea m IDo Not Use) [employer](DG C Obstetric s) OUTPATIENT [id number] dating jesu macho MAY KELLEY Jennifer 03/12 Released w/o Limitations [employer](D [facility] Obst[facility]) [employer](DG C_FH GME_Team IDo Not Use) OUTPATIENT [id number] NOB 10 WEEKS RADHA VARNER 03/21 Released w/o Limitations [employer](D GMC_FH GME_Tea m IDo Not Use) [employer](DGM C_FH GME_Team IDo Not Use) TELE CONSULT [id number] Notes Entered by: ZEE RODRIGUEZ 22 Mar 2016 1454 ------- ------- ------- ------- -- OB APPOINT JC WOOD 03/22 Referred for Appointment [employer](D GMC_FH GME_Tea m IDo Not Use) [employer](DG C_FH GME_Team IDo Not Use) TELE CONSULT [id number] Notes Entered by: ERINN DAILEY BY Jennifer 26 Mar 2016 1625 ------- ------- ------- ------- -- Lab result RADHA VARNER 03/26 [employer](D GMC_FH GME_Tea m IDo Not Use) [employer](DG C_FH GME_Team IDo Not Use) TELE CONSULT [id number] Notes Entered by: ERINN DAILEY BY Jennifer 02 Apr 2016 1456 ------- ------- ------- ------- -- Lab results RADHA VARNER 04/02 [employer]([facility] [facility]_Tea m IDo Not Use) [employer]([facility] C_ GME_Team IDo Not Use) OUTPATIENT [id number] f/u gestati onal diabete s;needs RADHA Yi 04/03 Released w/o Limitations [employer]([facility] GME_Tea m IDo Not Use) [employer]([facility] C Diabetes Education ) OUTPATIENT [id number] Notes Entered by: Bere TORRES 05 Apr 2016 0711 ------- ------- ------- ------- -- Appt for gestati onal diabete s PATSY TORRES 04/05 Released w/o Limitations [employer]([facility] Diabete s Educati on) [employer]([facility] C Nutrition ) OUTPATIENT [id number] Gestati onal diabete s mellitu s in pregnan cy, unspeci fied control KIMBERLI SIEGEL I 04/06 Released w/o Limitations [employer]([facility] Nutriti on) [employer]([facility] C Obstetric s) OUTPATIENT [id number] Gestati onal diabete s mellitu s in pregnan cy, unspeci fied control CHRISTINA BURROUGHS 04/11 Released w/o Limitations [employer]([facility] Obstetr ics) [employer]([facility] C_ GME_Team IDo Not Use) OUTPATIENT [id number] LLUVIA 14 WEEKS 06 DAYS RADHA VARNER 04/20 Released w/o Limitations [employer]([facility] GME_Tea m IDo Not Use) [employer]([facility] C_ GME_Team IDo Not Use) TELE CONSULT [id number] Notes Entered by: ZEE RODRIGUEZ 24 Apr 2016 1317 ------- ------- ------- ------- -- OB APPOINT LESLYE DARDENAHMETTORITO Kebede 04/24 Referred for Appointment [employer](D [facility]FH GME_Tea m IDo Not Use) [employer]([facility] C Nutrition ) OUTPATIENT [id number] F/U GDM AMINAT CHAPINCITO ESPINAL 04/26 Released w/o Limitations [employer](D C Nutriti on) [employer]([facility] C Obstetric s) OUTPATIENT [id number] 18wks/N ew HROB/Tr lisa From CHRISTINA BURROUGHS 05/09 Released w/o Limitations [employer](D C Obstetr ics) [employer]([facility] C Obstetric s) OUTPATIENT [id number] 18weeks OTONIEL SPRING 05/17 Released w/o Limitations [employer](D [facility] Obstetr ics) [employer]([facility] C Nutrition ) OUTPATIENT [id number] F/U APPT CHAPINCITO ESPINAL 05/24 Released w/o Limitations [employer]([facility] Nutriti on) [employer]([facility] C Ophthalmo logy Clinic) OUTPATIENT [id number] Unspeci fied Pre-Exi sting diabete s Mellitu s in childbi [facility] WENDIE DUBOSE 05/25 Released w/o Limitations [employer]([facility] Ophthal mology Clinic) [employer]([facility] C Obstetric s) OUTPATIENT [id number] 19wks OTONIEL SPRING 05/25 Released w/o Limitations [employer](D [facility] Obst[facility] ics) [employer]([facility] C Obstetric s) OUTPATIENT [id number] 20weeks OTONIEL SPRING 05/31 Released w/o Limitations [employer](D [facility] Obstetr ics) [employer]([facility] C Obstetric s) OUTPATIENT [id number] 21weeks /hrob/G ADONAY ADORNO 06/06 Released w/o Limitations [employer](D [facility] Obstetr ics) [employer]([facility] C Nutrition ) OUTPATIENT [id number] F/U APPT CHAPINCITO ESPINAL Richard 06/18 Released w/o Limitations [employer]([facility] Nutriti on) [employer]([facility] C Obstetric s) OUTPATIENT [id number] 23+week s CHRISTINA BURROUGHS 06/22 Released w/o Limitations [employer]([facility] Obstetr ics) [employer]([facility] C Obstetric s) OUTPATIENT [id number] 24weeks /HROB/p er SHYANNE Gray 06/29 Released w/o Limitations [employer]([facility] Obstetr ics) [employer]([facility] C Antepartu m Testing Unit) OUTPATIENT [id number] Notes Entered by: JEANA ROSE 08 Jul 2016 1611 ------- ------- ------- ------- -- Triage walk in for hypogly cemia JEANA ROSE 07/08 Released w/o Limitations [employer]([facility] Antepar [place] Testing Unit) [employer]([facility] C Antepartu m Testing Unit) OUTPATIENT [id number] MEAGHAN GLASER 07/10 Released w/o Limitations [employer]([facility] Antepar katlin Testing Unit) [employer]([facility] C Obstetric s) OUTPATIENT [id number] 26+week s OSVALDO HARDIN 07/11 Released w/o Limitations [employer]([facility] Obstetr ics) [employer]([facility] C Gynecolog y) TELE CONSULT [id number] Notes Entered by: CHRISTINA BURROUGHS 18 Jul 2016 1310 ------- ------- ------- ------- -- Blood sugars CHRISTINA BURROUGHS 07/18 [employer]([facility] Gynecol ogy) [employer]([facility] C Obstetric s) OUTPATIENT [id number] 28weeks ADONAY SOTO 07/25 Released w/o Limitations [employer]([facility] Obstetr ics) [employer]([facility] C Gynecolog y) TELE CONSULT [id number] Notes Entered by: ANABEL PARK 02 Aug 2016 1629 ------- ------- ------- ------- -- Pt wants to know if glucose fax was receive d by clinic NADYA FARRIS 08/02 [employer]([facility] [place]ne[place]gy) [employer]([facility] C Gynecolog y) TELE CONSULT [id number] Notes Entered by: CALVIN SCHAFFER 08 Aug 2016 1408 ------- ------- ------- ------- -- See note YASMANI SALGADO 08/08 [employer](D [facility] [place]) [employer]([facility] C Antepartu m Testing Unit) TELE CONSULT [id number] Notes Entered by: TERI FARRIS 15 Aug 2016 1519 ------- ------- ------- ------- -- Blood glucose log review NADYA FARRIS 08/15 [employer]([facility] Antepar [place] Testing Unit) [employer]([facility] C Gynecolog y) TELE CONSULT [id number] Notes Entered by: CALVIN SCHAFFER 15 Aug 2016 1528 ------- ------- ------- ------- -- See Note NADYA FARRIS 08/15 [employer]([facility] [place]col [place]gy) [employer]([facility] C GME Team H) OUTPATIENT [id number] PRE PCS FREDRICK TABARES 08/20 Released w/o Limitations [employer](D [facility] FH GME Team H) [employer]([facility] C Nutrition ) OUTPATIENT [id number] F/U APPT CHAPINCITO ESPINAL 08/21 Released w/o Limitations [employer]([facility] Nutriti on) [employer]([facility] C Obstetric s) OUTPATIENT [id number] 32weeks CHRISTINA BURROUGHS 08/22 Released w/o Limitations [employer]([facility] Obstetr ics) [employer]([facility] GME Procedure ) OUTPATIENT [id number] [place] FREDRICK Mills 08/22 Released w/o Limitations [employer]([facility] GME Procedu re) [employer]([facility] Gynecolog y) OUTPATIENT [id number] Notes Entered by: CALVIN SCHAFFER T 24 Aug 2016 0857 ------- ------- ------- ------- -- ATU NST GDMA2 FAWN MANCERA 08/24 Released w/o Limitations [employer]([facility] Gynecol ogy) [employer]([facility] Antepartu m Testing Unit) OUTPATIENT [id number] Notes Entered by: CALVIN SCHAFFER T 28 Aug 2016 0825 ------- ------- ------- ------- -- ATU NST GDMA2 JEANA ROSE 08/28 Released w/o Limitations [employer]([facility] Antepar [place] Testing Unit) [employer]([facility] Antepartu m Testing Unit) OUTPATIENT [id number] Notes Entered by: CALVIN SCHAFFER T 31 Aug 2016 0824 ------- ------- ------- ------- -- ATU NST GDMA2 CLARY MILLIGAN 08/31 Released w/o Limitations [employer]([facility] Antepar [place] Testing Unit) [employer]([facility] Antepartu m Testing Unit) OUTPATIENT [id number] Notes Entered by: CALVIN SCHAFFER T 04 Sep 2016 0837 ------- ------- ------- ------- -- ATU NST GDMA2 JOSE ROBERTO FITZGERALD 09/04 Released w/o Limitations [employer]([facility] Antepar [place] Testing Unit) [employer]([facility] C Obstetric s) OUTPATIENT [id number] 34weeks NADYA FARRIS S 09/05 Released w/o Limitations [employer](D C Obstetr ics) [employer]([facility] C Antepartu m Testing Unit) OUTPATIENT [id number] Notes Entered by: CALVIN SCHAFFER T 07 Sep 2016 0900 ------- ------- ------- ------- -- ATU NST GDMA2 AMBROSIO SUH 09/07 Released w/o Limitations [employer]([facility] Antepar [place] Testing Unit) [employer]([facility] C Antepartu m Testing Unit) OUTPATIENT [id number] Notes Entered by: CALVIN SCHAFFER T 11 Sep 2016 0840 ------- ------- ------- ------- -- ATU NST GDMA2 LISA WOLF 09/11 Released w/o Limitations [employer]([facility] Antepar [place] Testing Unit) [employer]([facility] C Antepartu m Testing Unit) OUTPATIENT [id number] Notes Entered by: CALVIN SCHAFFER T 14 Sep 2016 0835 ------- ------- ------- ------- -- ATU NST GDMA2 MEAGHAN GLASER 09/14 Released w/o Limitations [employer]([facility] Antepar [place] Testing Unit) [employer]([facility] C Antepartu m Testing Unit) OUTPATIENT [id number] Notes Entered by: CALVIN SCHAFFER T 18 Sep 2016 0824 ------- ------- ------- ------- -- ATU NST GDMA2 SHYANNE NUÑEZ 09/18 Released w/o Limitations [employer]([facility] Antepar [place] Testing Unit) [employer]([facility] C Obstetric s) OUTPATIENT [id number] 35+week s NEVIN OGDEN 09/18 Released w/o Limitations [employer](D [facility] Obstetr ics) [employer]([facility] C Antepartu m Testing Unit) OUTPATIENT [id number] Notes Entered by: CALVIN SCHAFFER 21 Sep [id number] ------- ------- ------- ------- -- ATU NST GDMA2 BRENDAN, RODNEY Ramirez 09/21 Released w/o Limitations [employer]([facility] Antepar [place] Testing Unit) [employer]([facility] C Obstetric s) OUTPATIENT [id number] 36+4 NEVIN OGDEN 09/25 Released w/o Limitations [employer]([facility] ics) [employer]([facility] C Antepartu m Testing Unit) OUTPATIENT [id number] Notes Entered by: CALVIN SCHAFFER 25 Sep [id number] ------- ------- ------- ------- -- ATU NST GDMA2 NEVIN OGDEN 09/25 Released w/o Limitations [employer]([facility] Antepar [place] Testing Unit) [employer]([facility] C Antepartu m Testing Unit) OUTPATIENT [id number] Notes Entered by: CALVIN SCHAFFER 27 Sep 2016 0840 ------- ------- ------- ------- -- ATU NST GDMA2 KENNY SONG 09/27 Released w/o Limitations [employer]([facility] Antepar [place] Testing Unit) [employer]([facility] GME Team J) OUTPATIENT [id number] Notes Entered by: BRISSA FITZGERALD TTHERony Christopher 30 Sep 2016 0126 ------- ------- ------- ------- -- OB triage for r/o ROM JOSE ROBERTO FITZGERALD 09/30 Released w/o Limitations [employer]([facility] GME Team J) [employer]([facility] C Antepartu m Testing Unit) OUTPATIENT [id number] Notes Entered by: CALVIN SCHAFFER 02 Oct 2016 0837 ------- ------- ------- ------- -- ATU NST GDMA2 RCUZ DUNHAM 10/02 Released w/o Limitations [employer]([facility] [place] Testing Unit) [employer]([facility] C Obstetric s) OUTPATIENT [id number] 37+5wee eduar/NEVIN DEL VALLE 10/02 Released w/o Limitations [employer]([facility] [place]stetr ics) [employer]([facility] C Antepartu m Testing Unit) OUTPATIENT [id number] Notes Entered by: CALVIN SCHAFFER T 05 Oct 2016 0844 ------- ------- ------- ------- -- ATU NST GDMA2 ALE GUILLEN 10/05 Released w/o Limitations [employer]([facility] Ante[employer] [place] Testing Unit) [employer] DIRECT TO [facility] FROM OTHER THAN ER OR APU [id number] OSVALDO HARDIN Bere 10/07 DISCHARGED HOME [employer]([facility] C Obstetric s) OUTPATIENT [id number] 6 week follow up SHYANNE NUÑEZ 11/16 Released w/o Limitations [employer]([facility] [place]stetr ics) [employer]([facility] C Gynecolog y) TELE CONSULT [id number] Notes Entered by: Jennifer HYDE 28 Nov 2016 1514 ------- ------- ------- ------- -- Pap results SHYANNE NUÑEZ 11/28 [employer]([facility] Gynecol ogy) [employer] [facility]) OUTPATIENT [id number] follow up after failed glucose test JAVED BOWDEN 12/18 Released w/o Limitations [employer](W arrior Operati onal Medicin e) [employer](Dis ease Managemen t) OUTPATIENT [id number] pre-jennifer betes group class URSULA LIU L 12/25 Released w/o Limitations [employer](D isease Managem ent) [employer](Com prehensiv e Medicatio n Mgmt) OUTPATIENT [id number] Notes Entered by: MARCELLUS OLGUIN L 25 Dec 2016 1630 ------- ------- ------- ------- -- Prediab etes group class ARRON, KANU L 12/25 Released w/o Limitations [employer](C omprehe nsive Medicat ion Mgmt) [employer](War rior Operation al Medicine) TELE CONSULT [id number] Notes Entered by: JAVED BOWDEN 05 Jan 2017 0836 ------- ------- ------- ------- -- Prediab etic class DAYA STEPHENS 01/05 Other Not Elsewhere Classified [employer](W arrior Operati onal Medicin e) [employer](2MD G [facility] [employer] r) TELE CONSULT [id number] Notes Entered by: ELIANA OBRIEN 12 Mar 2018 0926 ------- ------- ------- ------- -- #AL: Lab Order Request ANGELIKA DIETRICH 03/12 Referred for Appointment [employer](2 MDG [facility] [place] [employer](2MD G [facility] [employer]) OUTPATIENT [id number] Pre-jennifer betic followu p/On FEML/Ms Lizzy Stallworth gave ok to book appt DES ROBERTSON 03/21 Released w/o Limitations [employer](2 MDG [facility] [place]) [employer](Dis ease Managemen t) OUTPATIENT [id number] health coachin geena prediab etes URSULA LIU L 03/26 Released w/o Limitations [employer](D isease Managem ent) MD Patricia([facility] A Team) OUTPATIENT [id number] Pt says physica l/refer al to kannano MIGUEL A Ashley 03/24 Released w/o Limitations [facility] ([facility] A Team) [facility] A Team) TELE CONSULT [id number] Notes Entered by: GRADY ZHENG 09 Apr 2019 1312 ------- ------- ------- ------- [facility] Other Not Elsewhere Classified [facility] ([facility] A Team) [facility]( [facility]) OUTPATIENT [id number] 2 Pilar cyst BRO DIALLO 04/29 Released w/o Limitations [facility] ([facility]) [facility]) TELE CONSULT [id number] Notes Entered by: STEPHANIE ALMAZAN 06 May 2019 1137 ------- ------- ------- ------- -- Marcy serna - STEPHANIE Reid 05/06 Released to Self Care [facility] ([facility]) [facility]( [facility]) OUTPATIENT [id number] follow up per BRO Watson 06/02 Released w/o Limitations [facility] ([facility]) [facility] A Team) OUTPATIENT [id number] 2 Pt says pink eye/x1d KELECHI Means 06/04 Released w/o Limitations [facility] ([facility] A Team) [facility]( [facility]) OUTPATIENT [id number] 0 f/u per BRO Watson 06/16 Released w/o Limitations [facility] ([facility]) [facility] A Team) TELE CONSULT [id number] Notes Entered by: DENNISE RINCON 07 Jul 2019 0741 ------- ------- ------- ------- -- Sinus issues [phone]/ [facility] BETTY GABRIEL 07/06 Advice Assessment [facility] ([facility] A Team) MD [facility] A Team) OUTPATIENT [id number] Notes Entered by: GRADY ZHENG 07 Jul 2019 1054 ------- ------- ------- ------- -- strep swab FREDRICK GAYTAN 07/07 Released w/o Limitations MD [facility] ([facility] A Team) [facility]) TELE CONSULT [id number] Notes Entered by: GLORIA RANDHAWA 30 Sep 2019 0836 ------- ------- ------- ------- -- MISC: PT REPORTS VOMITIN G X 4 DAYS/08 [phone]/ BETTY BEAL 09/29 Advice Assessment MD [facility] ([facility]) MD [facility] A Team) TELE CONSULT [id number] Notes Entered by: JAMILA CROW 06 Oct 2019 1447 ------- ------- ------- ------- -- MIGUEL A Draper 10/06 [facility] ([facility] A Team) [facility]) TELE CONSULT [id number] Notes Entered by: RUT PEGUERO 02 Sep 2020 1622 ------- ------- ------- ------- -- [facility] TJ NUNEZ 09/02 [facility] ([facility] Medicin e Clinic) [facility]) OUTPATIENT [id number] 7 REQ F2F FOR PAP SMEAR AND IUD REMOVAL ,SUPERV ISOR SAID PLACE HC MIGUEL A JUSTICE 09/20 Released w/o Limitations MD [facility] ([facility] BG) [facility]) OUTPATIENT [id number] 2 IUD removal MIGUEL A JUSTICE 09/20 [facility]ased w/o Limitations [facility]) TELE CONSULT [id number] Notes Entered by: JAMILA CROW 10 Oct 2020 1458 ------- ------- ------- ------- -- pap results JINADONAYEN 10/10 Other Not Elsewhere Classified [facility] ([facility]) [address] [place] [address] Jeanmarie WEBBER [facility]Azo tt [facility] [employer]) TELE CONSULT [id number] Notes Entered by: THANIA BEAULIEU 19 Jul 2021 1421 ------- ------- ------- ------- -- Order shalom De La O /Rich - - tsg JASON PADILLA 07/19 Released to Self Care [facility] Jeanmarie WEBBER [facility]S melody [facility] [employer]) [address] [place] [address] Jeanmarie WEBBER [facility])([employer] ecology) OUTPATIENT [id number] URSULA GRACE 08/01 Released w/o Limitations [address] [place] [address] Jeanmarie WEBBER [facility])(G balwindercosparkle gy) [address] [place] [address] Jeanmarie WEBBER [facility])(Azo [facility] Fam Res [employer]) OUTPATIENT [id number] Prediab etes check up/lab work JASON PADILLA 08/11 Released w/o Limitations [address] [place] [address] Group eJanmarie WEBBER [facility])(S melody [facility] [employer]) [address] [place] [address] Jeanmarie WEBBER [facility])(Nut [facility] Medicine) OUTPATIENT [id number] Prediab etes MARJ YOST 09/08 Released w/o Limitations [address] [place] [address] Jeanmarie WEBBER ([facility])(N utritio nal Medicin e) [address] [place] [address] Jeanmarie WEBBER [facility])(Sco tt [facility] Fam [employer]) TELE CONSULT [id number] Notes Entered by: SHADIA BRANTLEY RET 25 Sep 2021 1022 ------- ------- ------- ------- -- SX: Mole Left Leg Dermato logy Referra l/Schel by/ *p DANNI Abrams 09/25 Referred for Appointment [address] [place] [address] Jeanmarie WEBBER ([facility])(S cott [facility] Fam Res [employer]) [address] [place] [address] Jeanmarie EWAJohan ([facility])(Sco tt [facility] Fam Res [employer]) OUTPATIENT [id number] eval of painful mole on leg that is DAVION So 09/25 Released w/o Limitations [address] [place] [address] Jeanmarie EWAJohan ([facility])(S cott [facility] Fam Res [employer]) [address] [place] [address] [facility])([facility]) OUTPATIENT [id number] PreDiab etes and weight loss MARJ YOST 10/03 Released w/o Limitations [address] [place] [address] Jeanmarie B ([facility])(N utritio nal Medicin e) [address] [place] [address] Jeanmarie Johan [facility])(OF C Proc Clinic) OUTPATIENT [id number] 2 MINORS/ LEFT THIGH LESION VISHNU KU 10/16 Released w/o Limitations [address] [place] [address] Jeanmarie EWAB ([facility])(O [facility]) [address] [place] [address] Jeanmarie B [facility])(Sco tt [facility] Fam Res [employer]) TELE CONSULT [id number] Notes Entered by: VISHNU KU 24 Oct 2021 0804 ------- ------- ------- ------- -- Patholo SOFIA Burgos 10/24 Released to Self Care [address] [place] [address] Jeanmarie EWAB ([facility])(S cott [facility] Fam Res [employer]m Green) [address] [place] [address] Jaenmarie B ([facility])(Sco tt [facility] FAMRES [employer]m Blue) OUTPATIENT [id number] Notes Entered by: Francisca TREVINO 31 Oct 2021 1328 ------- ------- ------- ------- -- WALK IN/ STITCH REMOVAL MARJORIE LEE S 10/31 Released w/o Limitations [address] [place] [address] Jeanmarie Johan [facility]S cott [facility] FAMRES [employer]) [address] [place] [address] [facility])(Nut [facility] Medicine) OUTPATIENT [id number] weight loss MARJ YOST S 10/31 Released w/o Limitations [address] [place] [address] [facility])(N utritio nal Medicin e) [address] [place] [address] [facility])(Sco tt [facility] Fam Res [employer]m Green) OUTPATIENT [id number] F2F - Itchy ears and scalp x 3 days, MATT JONES 11/23 Released w/o Limitations [address] [place] [address] Jeanmarie Johan [facility])(S [facility] Fam Res [employer]m Green) [address] [place] [address] [facility])(Sco tt [facility] Fam Res [employer]m [employer]) OUTPATIENT [id number] fatigue and possibl e depress ion NASIR DE LA O 01/23 Released w/o Limitations [address] [place] [address] Jaenmarie Johan [facility])(S [facility] Fam Res [employer]) [address] [place] [address] [facility])(Sco tt [facility] Fam Res [employer]) TELE CONSULT [id number] Notes Entered by: NASIR DE LA O 26 Jan 2022 1648 ------- ------- ------- ------- -- Lab follow up NASIR DE LA O 01/[address] [place] [address] Jeanmarie WEBBER [facility])(S [facility] Fam Res [employer]m Green) Procedures Combined list of: 1) Procedures from Department of Veterans Affairs facilities going back up to thelast 18 months, not all VA non-surgical procedures are included; 2) All procedures from the Department of Defense facilities. Procedure Procedure Type Code Date Perfomer Comments Sourc e BRIEF EMOTIONAL/BEHAVIORA L ASSESSMENT (EG, DEPRESSION INVENTORY, ATTENTION-DEFICIT/H YPERACTIVITY DISORDER [ADHD] SCALE), WITH SCORING AND DOCUMENTATION, PER STANDARDIZED INSTRUMENT [facility] MEDICAL NUTRITION THERAPY; RE-ASSESSMENT AND INTERVENTION, INDIVIDUAL, [id number] WITH THE PATIENT, EACH 15 MINUTES [facility] TELE ASSESS & MGT SRV PROV QUAL NONPHYS HLTH CARE PRO TO EST PAT,PARENT,GUARD NOT ORIG REL ASSESS & MGT SRV PROV W/IN PREV 7 DAYS NOR LEAD ASSESS & MGT SRV/PX W/IN NXT 24 HR/SOON APT;5-10 MIN MED DIS [facility] PUNCH BIOPSY OF SKIN (INCLUDING SIMPLE CLOSURE, WHEN PERFORMED); SINGLE LESION [facility] MEDICAL NUTRITION THERAPY; RE-ASSESSMENT AND INTERVENTION, INDIVIDUAL, [id number] WITH THE PATIENT, EACH 15 MINUTES [facility] MEDICAL NUTRITION THERAPY; INITIAL ASSESSMENT AND INTERVENTION, INDIVIDUAL, [id number] WITH THE PATIENT, EACH 15 MINUTES [facility] SMEAR, PRIMARY SOURCE WITH INTERPRETATION; WET MOUNT FOR INFECTIOUS AGENTS (EG, SALINE, JAMA INK, JADE PREPS) [facility] DISEASE MANAGEMENT PROGRAM; INITIAL ASSESSMENT AND INITIATION OF THE PROGRAM [facility] PHYS/OTH QUALIFIED HEALTH BUN MACHINE OPERATOR QUALIFIED,EDUCATION ,TRAIN,LICENSURE/RE GULATION (WHEN APPLICABLE) EDUC SER RENDERED TO PATS IN A GRP SETTING (EG,,OBESIT Y,OR DIABETIC INSTRUCT) [facility] DIABETES OUTPATIENT SELF-MANAGEMENT TRAINING SERVICES, GROUP SESSION (2 OR MORE), PER 30 MINUTES [facility] IMMUNIZATION ADMINISTRATION (INCLUDES PERCUTANEOUS, INTRADERMAL, SUBCUTANEOUS, OR INTRAMUSCULAR INJECTIONS); EACH ADDITIONAL VACCINE (SINGLE OR COMBINATION VACCINE/TOXOID) [facility] DETERMINATION OF REFRACTIVE STATE [facility] DESTRUCTION (EG, LASER SURGERY, ELECTROSURGERY, CRYOSURGERY, CHEMOSURGERY, SURGICAL CURETTEMENT), OF BENIGN LESIONS OTHER THAN SKIN TAGS OR CUTANEOUS VASCULAR PROLIFERATIVE LESIONS; UP TO 14 LESIONS [facility] VISUAL FIELD EXAMINATION, UNI OR BILATERAL, WITH MEDICAL DIAGNOSTIC EVAL; LIMITED EXAM (EG, TANGENT SCREEN, AUTOPLOT, ARC PERIMETER, OR SINGLE STIMULUS LEVEL AUTO TEST, EG OCTOPUS 3 OR 7 EQUIVALENT) [facility] INSERTION OF INTRAUTERINE DEVICE (IUD) [facility] REPAIR PERINEUM SKIN, EXTERNAL APPROACH DoD REPAIR VAGINA, VIA NATURAL OR ARTIFICIAL OPENING DoD DRAINAGE OF AMNIOTIC FLUID, THERAPEUTIC FROM PRODUCTS OF CONCEPTION, VIA NATURAL OR ARTIFICIAL OPENING DoD DELIVERY OF PRODUCTS OF CONCEPTION, EXTERNAL APPROACH [facility] VAGINAL DELIVERY ONLY (WITH OR WITHOUT EPISIOTOMY AND/OR FORCEPS); [facility] NON-STRESS TEST [facility] SUBSEQ CARE VISIT () [EXCLS:PATIENTS WHO ARE SEEN FOR A CONDITION UNREL TO / CARE (EG,AN UP RESPIR INFECT;PATIENTS SEEN FOR CONSULTATION ONLY,NOT FOR CONT CARE)] [facility] NON-STRESS TEST [facility] NON-STRESS TEST [facility] NON-STRESS TEST [facility] SUBSEQ CARE VISIT () [EXCLS:PATIENTS WHO ARE SEEN FOR A CONDITION UNREL TO / CARE (EG,AN UP RESPIR INFECT;PATIENTS SEEN FOR CONSULTATION ONLY,NOT FOR CONT CARE)] [facility] NON-STRESS TEST [facility] SUBSEQ CARE VISIT () [EXCLS:PATIENTS WHO ARE SEEN FOR A CONDITION UNREL TO / CARE (EG,AN UP RESPIR INFECT;PATIENTS SEEN FOR CONSULTATION ONLY,NOT FOR CONT CARE)] [facility] NON-STRESS TEST [facility] NON-STRESS TEST [facility] NON-STRESS TEST [facility] SUBSEQ CARE VISIT () [EXCLS:PATIENTS WHO ARE SEEN FOR A CONDITION UNREL TO / CARE (EG,AN UP RESPIR INFECT;PATIENTS SEEN FOR CONSULTATION ONLY,NOT FOR CONT CARE)] [facility] SUBSEQ CARE VISIT () [EXCLS:PATIENTS WHO ARE SEEN FOR A CONDITION UNREL TO / CARE (EG,AN UP RESPIR INFECT;PATIENTS SEEN FOR CONSULTATION ONLY,NOT FOR CONT CARE)] [facility] NON-STRESS TEST [facility] NON-STRESS TEST [facility] NON-STRESS TEST [facility] NON-STRESS TEST [facility] SUBSEQ CARE VISIT () [EXCLS:PATIENTS WHO ARE SEEN FOR A CONDITION UNREL TO / CARE (EG,AN UP RESPIR INFECT;PATIENTS SEEN FOR CONSULTATION ONLY,NOT FOR CONT CARE)] [facility] MEDICAL NUTRITION THERAPY; RE-ASSESSMENT AND INTERVENTION, INDIVIDUAL, [id number] WITH THE PATIENT, EACH 15 MINUTES [facility] SUBSEQ CARE VISIT () [EXCLS:PATIENTS WHO ARE SEEN FOR A CONDITION UNREL TO / CARE (EG,AN UP RESPIR INFECT;PATIENTS SEEN FOR CONSULTATION ONLY,NOT FOR CONT CARE)] [facility] SUBSEQ CARE VISIT () [EXCLS:PATIENTS WHO ARE SEEN FOR A CONDITION UNREL TO / CARE (EG,AN UP RESPIR INFECT;PATIENTS SEEN FOR CONSULTATION ONLY,NOT FOR CONT CARE)] [facility] NON-STRESS TEST [facility] NON-STRESS TEST [facility] EDUCATION &TRAINING, PATIENT SELF-MGT QUALIFIED, NONPHYSICIAN HEALTH BUN MACHINE OPERATOR USING STDIZED CURRICULUM, [id number] W THE PATIENT (COULD INCL CAREGIVER/FAMILY) EA 30 MIN; INDIVIDUAL PATIENT [facility] SUBSEQ CARE VISIT () [EXCLS:PATIENTS WHO ARE SEEN FOR A CONDITION UNREL TO / CARE (EG,AN UP RESPIR INFECT;PATIENTS SEEN FOR CONSULTATION ONLY,NOT FOR CONT CARE)] [facility] MEDICAL NUTRITION THERAPY; RE-ASSESSMENT AND INTERVENTION, INDIVIDUAL, [id number] WITH THE PATIENT, EACH 15 MINUTES [facility] SUBSEQ CARE VISIT () [EXCLS:PATIENTS WHO ARE SEEN FOR A CONDITION UNREL TO / CARE (EG,AN UP RESPIR INFECT;PATIENTS SEEN FOR CONSULTATION ONLY,NOT FOR CONT CARE)] [facility] EDUCATION &TRAINING, PATIENT SELF-MGT QUALIFIED, NONPHYSICIAN HEALTH BUN MACHINE OPERATOR USING STDIZED CURRICULUM, [id number] W THE PATIENT (COULD INCL CAREGIVER/FAMILY) EA 30 MIN; INDIVIDUAL PATIENT [facility] EDUCATION &TRAINING, PATIENT SELF-MGT QUALIFIED, NONPHYSICIAN HEALTH BUN MACHINE OPERATOR USING STDIZED CURRICULUM, [id number] W THE PATIENT (COULD INCL CAREGIVER/FAMILY) EA 30 MIN; INDIVIDUAL PATIENT [facility] FUNDUS PHOTOGRAPHY WITH INTERPRETATION AND REPORT [facility] MEDICAL NUTRITION THERAPY; RE-ASSESSMENT AND INTERVENTION, INDIVIDUAL, [id number] WITH THE PATIENT, EACH 15 MINUTES [facility] EDUCATION &TRAINING, PATIENT SELF-MGT QUALIFIED, NONPHYSICIAN HEALTH BUN MACHINE OPERATOR USING STDIZED CURRICULUM, [id number] W THE PATIENT (COULD INCL CAREGIVER/FAMILY) EA 30 MIN; INDIVIDUAL PATIENT [facility] SUBSEQ CARE VISIT () [EXCLS:PATIENTS WHO ARE SEEN FOR A CONDITION UNREL TO / CARE (EG,AN UP RESPIR INFECT;PATIENTS SEEN FOR CONSULTATION ONLY,NOT FOR CONT CARE)] [facility] MEDICAL NUTRITION THERAPY; RE-ASSESSMENT AND INTERVENTION, INDIVIDUAL, [id number] WITH THE PATIENT, EACH 15 MINUTES [facility] ELECTROCARDIOGRAM, ROUTINE ECG WITH AT LEAST 12 LEADS; WITH INTERPRETATION AND REPORT [facility] SUBSEQ CARE VISIT () [EXCLS:PATIENTS WHO ARE SEEN FOR A CONDITION UNREL TO / CARE (EG,AN UP RESPIR INFECT;PATIENTS SEEN FOR CONSULTATION ONLY,NOT FOR CONT CARE)] [facility] MEDICAL NUTRITION THERAPY; INITIAL ASSESSMENT AND INTERVENTION, INDIVIDUAL, [id number] WITH THE PATIENT, EACH 15 MINUTES [facility] EDUCATION &TRAINING, PATIENT SELF-MGT QUALIFIED, NONPHYSICIAN HEALTH BUN MACHINE OPERATOR USING STDIZED CURRICULUM, [id number] W THE PATIENT (COULD INCL CAREGIVER/FAMILY) EA 30 MIN; INDIVIDUAL PATIENT [facility] SUBSEQ CARE VISIT () [EXCLS:PATIENTS WHO ARE SEEN FOR A CONDITION UNREL TO / CARE (EG,AN UP RESPIR INFECT;PATIENTS SEEN FOR CONSULTATION ONLY,NOT FOR CONT CARE)] [facility] SUBSEQ CARE VISIT () [EXCLS:PATIENTS WHO ARE SEEN FOR A CONDITION UNREL TO / CARE (EG,AN UP RESPIR INFECT;PATIENTS SEEN FOR CONSULTATION ONLY,NOT FOR CONT CARE)] [facility] ULTRASOUND, UTERUS, REAL TIME WITH IMAGE DOCUMENTATION, LIMITED (EG, HEART BEAT, PLACENTAL LOCATION, POSITION AND/OR QUALITATIVE AMNIOTIC FLUID VOLUME), 1 OR MORE FETUSES [facility] ULTRASOUND, UTERUS, REAL TIME WITH IMAGE DOCUMENTATION, LIMITED (EG, HEART BEAT, PLACENTAL LOCATION, POSITION AND/OR QUALITATIVE AMNIOTIC FLUID VOLUME), 1 OR MORE FETUSES 015 [facility] SCREENING PAPANICOLAOU SMEAR; OBTAINING, PREPARING AND CONVEYANCE OF CERVICAL OR VAGINAL SMEAR TO LABORATORY 014 [facility] SCANNING COMPUTERIZED OPHTHALMIC DIAGNOSTIC IMAGING, POSTERIOR SEGMENT, WITH INTERPRETATION AND REPORT, UNILATERAL OR BILATERAL; OPTIC NERVE 013 [facility] REMOVAL OF INTRAUTERINE DEVICE (IUD) [facility] WAIVER SERVICES; NOT OTHERWISE SPECIFIED (NOS) [facility] URINALYSIS, BY DIP STICK OR TABLET REAGENT FOR BILIRUBIN, GLUCOSE, HEMOGLOBIN, KETONES, LEUKOCYTES, NITRITE, PH, PROTEIN, SPEC GRAVITY, UROBILINOGEN, ANY NUMBER OF CONSTITUENTS; WITH MICROSCOPY DoD TELE ASSESS & MGT SRV PROV QUAL NONPHYS HLTH CARE PRO TO EST PAT,PARENT,GUARD NOT ORIG REL ASSESS & MGT SRV PROV W/IN PREV 7 DAYS NOR LEAD ASSESS & MGT SRV/PX W/IN NXT 24H/SOON APT; 11-20 MIN MED DIS [facility] TELE ASSESS & MGT SRV PROV QUAL NONPHYS HLTH CARE PRO TO EST PAT,PARENT,GUARD NOT ORIG REL ASSESS & MGT SRV PROV W/IN PREV 7 DAYS NOR LEAD ASSESS & MGT SRV/PX W/IN NXT 24H/SOON APT; 11-20 MIN MED DIS [facility] POSTOPERATIVE FOLLOW-UP VISIT, NORMALLY INCLUDED IN THE SURGICAL PACKAGE, INDICATE THAT EVALUATION & MANAGEMENT SERVICE WAS PERFORMED DURING A POSTOPERATIVE PERIOD REASON RELATED ORIGINAL PROCEDURE [facility] UNLISTED SPECIAL SERVICE, PROCEDURE OR REPORT [facility] TELE ASSESS & MGT SRV PROV QUAL NONPHYS HLTH CARE PRO TO EST PAT,PARENT,GUARD NOT ORIG REL ASSESS & MGT SRV PROV W/IN PREV 7 DAYS NOR LEAD ASSESS & MGT SRV/PX W/IN NXT 24H/SOON APT; 11-20 MIN MED DIS DoD Non-Physician Phone Call To Pt/Provider Intermed (11-20 min) Non-Physician Phone Call To Pt/Provider Intermed (11-20 min) [id number] [phone] BETTY GABRIEL [facility] Postoperative Visit, Without Charge Postoperative Visit, Without Charge [phone] BRO DIALLO [facility] Non-Physician Phone Call To Pt/Provider Intermed (11-20 min) Non-Physician Phone Call To Pt/Provider Intermed (11-20 min) [id number] [id number] LISA MOON [facility] Disease management program; initial a e ment and initiation of the program 018 URSULA LIU [facility] -Supervised Group Educational Services -Supervised Group Educational Services [phone] KANU HELLER [facility] Diabetes outpatient self-management training services, group se ion (2 or more), per 30 minutes 017 URSULA LIU [facility] Urine HCG, Test Urine HCG, Test [id number] [id number] [facility] Gynecologic Services Intrauterine Device (IUD) Insertion Gynecologic Services Intrauterine Device (IUD) Insertion [id number] [facility] [facility] -Supervised Specimen Handling / Transfer: Office To Lab -Supervised Specimen Handling / Transfer: Office To Lab [id number] Screening papanicolaou smear; obtaining, preparing and conveyance of cervical or vaginal smear to laboratory [address] [facility] Obstetrical Services Care Visit Obstetrical Services Care Visit [id number] [address] [facility] Non-Stre Test (___ 0,2) Non-Stress Test (___ 0,2) 96363 016 [facility] OB Services Antepartum Care Only Subsequent Single Visit OB Services Antepartum Care Only Subsequent Single Visit [id number] 016 [facility] OB Services Antepartum Care Only Subsequent Single Visit OB Services Antepartum Care Only Subsequent Single Visit [id number] 016 NEVIN OGDEN [facility] Non-Stre Test (___ 0,2) Non-Stress Test (___ 0,2) 59839 016 CRUZ DUNHAM [facility] Non-Stre Test (___ 0,2) Non-Stress Test (___ 0,2) 14842 016 JONO SCHAFFER [facility] OB Services Antepartum Care Only Subsequent Single Visit OB Services Antepartum Care Only Subsequent Single Visit 050 016 JONO SCHAFFER [facility] OB Services Antepartum Care Only Subsequent Single Visit OB Services Antepartum Care Only Subsequent Single Visit 0502 016 NEVIN OGDEN Non-Stre Test (___ 0,2) Non-Stress Test (___ 0,2) 24379 016 NEVIN OGDEN Non-Stre Test (___ 0,2) Non-Stress Test (___ 0,2) 016 RODNEY CARDONA OB Services Antepartum Care Only Subsequent Single Visit OB Services Antepartum Care Only Subsequent Single Visit 050 016 RODNEY CARDONA OB Services Antepartum Care Only Subsequent Single Visit OB Services Antepartum Care Only Subsequent Single Visit 050 016 NEVIN OGDEN Non-Stre Test (___ 0,2) Non-Stress Test (___ 0,2) 016 KENNY SONG Non-Stre Test (___ 0,2) Non-Stress Test (___ 0,2) 36358 016 MEAGHAN GLASER OB Services Antepartum Care Only Subsequent Single Visit OB Services Antepartum Care Only Subsequent Single Visit 050 016 MEAGHAN GLASER Non-Stre Test (___ 0,2) Non-Stress Test (___ 0,2) 94137 016 LISA WOLF OB Services Antepartum Care Only Subsequent Single Visit OB Services Antepartum Care Only Subsequent Single Visit 050 016 LISA WOLF Non-Stre Test (___ 0,2) Non-Stress Test (___ 0,2) 77564 016 AMBROSIO SUH [facility] OB Services Antepartum Care Only Subsequent Single Visit OB Services Antepartum Care Only Subsequent Single Visit 050 016 AMBROSIO SUH [facility] OB Services Antepartum Care Only Subsequent Single Visit OB Services Antepartum Care Only Subsequent Single Visit 0502 016 NADYA FARRIS [facility] Non-Stre Test (___ 0,2) Non-Stress Test (___ 0,2) 16833 016 JOSE ROBERTO FITZGERALD [facility] OB Services Antepartum Care Only Subsequent Single Visit OB Services Antepartum Care Only Subsequent Single Visit [id number] 016 JOSE ROBERTO FITZGERALD [facility] Non-Stre Test (___ 0,2) Non-Stress Test (___ 0,2) 70870 016 MOIZ-SHARP , CLARY A [facility] OB Services Antepartum Care Only Subsequent Single Visit OB Services Antepartum Care Only Subsequent Single Visit 050 016 MOIZ-SHARP , CLARY A [facility] Non-Stre Test (___ 0,2) Non-Stress Test (___ 0,2) 12663 016 JEANA ROSE [facility] OB Services Antepartum Care Only Subsequent Single Visit OB Services Antepartum Care Only Subsequent Single Visit 050 016 JEANA ROSE [facility] Ultrasound Obstetric Limited Evaluation Ultrasound Obstetric Limited Evaluation 79278 016 FAWN MANCERA [facility] Non-Stre Test (___ 0,2) Non-Stress Test (___ 0,2) 20524 016 FAWN MANCERA [facility] OB Services Antepartum Care Only Subsequent Single Visit OB Services Antepartum Care Only Subsequent Single Visit [id number] 016 FAWN MANCERA [facility] OB Services Antepartum Care Only Subsequent Single Visit OB Services Antepartum Care Only Subsequent Single Visit 0502F 016 CHRISTINA BURROUGHS [facility] Medical Nutrition Therapy Re-a e ment, Intervention Medical Nutrition Therapy Re-assessment, Intervention [id number] 016 CHAPINCITO ESPINAL [facility] OB Services Antepartum Care Only Subsequent Single Visit OB Services Antepartum Care Only Subsequent Single Visit 0502F 016 ADONAY SOTO [facility] OB Services Antepartum Care Only Subsequent Single Visit OB Services Antepartum Care Only Subsequent Single Visit 0502F 016 OSVALDO HARDIN [facility] Non-Stre Test (___ 0,2) Non-Stress Test (___ 0,2) 80921 016 MEAGHAN GLASER [facility] Non-Stre Test (___ 0,2) Non-Stress Test (___ 0,2) 24031 016 JEANA ROSE [facility] Patient Counseling Medical Management Individual Patient Patient Counseling Medical Management Individual Patient [id number] [id number] [facility] OB Services Antepartum Care Only Subsequent Single Visit OB Services Antepartum Care Only Subsequent Single Visit [id number] 016 [facility] OB Services Antepartum Care Only Subsequent Single Visit OB Services Antepartum Care Only Subsequent Single Visit 0502F 016 CHRISTINA BURROUGHS [facility] Medical Nutrition Therapy Re-a e ment, Intervention Medical Nutrition Therapy Re-assessment, Intervention 81936 016 CHAPINCITO ESPINAL [facility] OB Services Antepartum Care Only Subsequent Single Visit OB Services Antepartum Care Only Subsequent Single Visit 0502F 016 ADONAY SOTO [facility] Patient Counseling Medical Management Individual Patient Patient Counseling Medical Management Individual Patient [id number] OTONIEL SPRING [facility] OB Services Antepartum Care Only Subsequent Single Visit OB Services Antepartum Care Only Subsequent Single Visit 0502F 016 OTOINEL SPRING [facility] Fundus Photography Fundus Photography [id number] 07/20 016 WENDIE DUBOSE Wnjennifer ou [facility] Scanning Computerized Ophthalmic Diagnostic Imaging Retina Scanning Computerized Ophthalmic Diagnostic Imaging Retina 16428 016 WENDIE DUBOSE ou [facility] Ophthalmological New Patient Start Comprehensive Care Ophthalmological New Patient Start Comprehensive Care 06702 016 WENDIE DUBOSE [facility] Patient Counseling Medical Management Individual Patient Patient Counseling Medical Management Individual Patient [id number] OTONIEL SPRING [facility] OB Services Antepartum Care Only Subsequent Single Visit OB Services Antepartum Care Only Subsequent Single Visit 0502F 016 OTONIEL SPRING [facility] Medical Nutrition Therapy Re-a e ment, Intervention Medical Nutrition Therapy Re-assessment, Intervention 42317 016 CHAPINCITO ESPINAL [facility] Patient Counseling Medical Management Individual Patient Patient Counseling Medical Management Individual Patient [phone] KINGS-BRANDY OTONIEL Jennifer [facility] OB Services Antepartum Care Only Subsequent Single Visit OB Services Antepartum Care Only Subsequent Single Visit 0502F 016 KINGS-BRANDY, OTONIEL L [facility]D OB Services Antepartum Care Only Subsequent Single Visit OB Services Antepartum Care Only Subsequent Single Visit 0502F 016 CHRISTINA BURROUGHS [facility] Medical Nutrition Therapy Re-a e ment, Intervention Medical Nutrition Therapy Re-assessment, Intervention 16838 016 CHAPINCITO ESPINAL [facility] ECG 12-Lead With Interpretation And Report ECG 12-Lead With Interpretation And Report 08390 016 RADHA VARNER [facility] OB Services Antepartum Care Only Subsequent Single Visit OB Services Antepartum Care Only Subsequent Single Visit 0502F 016 RADHA VARNER [facility] Patient Counseling Medical Management Individual Patient Patient Counseling Medical Management Individual Patient [id number] 016 PATSY TORRES [facility] OB Services Antepartum Care Only Subsequent Single Visit OB Services Antepartum Care Only Subsequent Single Visit 0502F 016 CHRISTINA BURROUGHS [facility] Medical Nutrition Therapy Initial A e ment, Intervention Medical Nutrition Therapy Initial Assessment, Intervention 42091 016 KIMBERLI SIEGEL I [facility] Patient Counseling Medical Management Individual Patient Patient Counseling Medical Management Individual Patient [id number] [phone] RADHA VARNER [facility] OB Services Antepartum Care Only Subsequent Single Visit OB Services Antepartum Care Only Subsequent Single Visit 0502F 016 QUINTONCurrencyBirdRADHA CARVALHO [facility] OB Services Antepartum Care Only Subsequent Single Visit OB Services Antepartum Care Only Subsequent Single Visit [id number] 016 RADHA VARNER [facility] Ultrasound Obstetric Limited Evaluation Ultrasound Obstetric Limited Evaluation 50125 016 KELLEY OLVERA [facility] Ultrasound Obstetric Limited Evaluation Ultrasound Obstetric Limited Evaluation 81528 015 BALJIT GILMORE [facility] Screening papanicolaou smear; obtaining, preparing and conveyance of cervical or vaginal smear to laboratory 014 JUNIOR FLORES [facility] Scanning Computerized Ophthalmic Diagnostic Imaging Optic Nerve Scanning Computerized Ophthalmic Diagnostic Imaging Optic Nerve 41724 013 MONY REDDY [facility] Visual Stoll Test Extended Examination Visual Stoll Test Extended Examination 65611 013 MONY REDDY [facility] Determination Of Refractive State Determination Of Refractive State 00550 013 MONY REDDY Ophthalmological New Patient Start Comprehensive Care Ophthalmological New Patient Start Comprehensive Care 45597 013 MONY REDDY [facility] Vaginal Wet [place] Vaginal [place] 81790 LESLY, URSULA CONCEPCION [facility] Vaginal JADE Prep Vaginal JADE Prep 08884 CA MABLEGEORGEDY CONCEPCION [facility] Medical Nutrition Therapy Initial A e ment, Intervention Medical Nutrition Therapy Initial Assessment, Intervention 74057 PRIYANK, MARJ S [facility] Medical Nutrition Therapy Re-a e ment, Intervention Medical Nutrition Therapy Re-assessment, Intervention 42352 PRIYANK, MARJ S [facility] Non-Physician Phone Call To Patient/Provider Brief (5-10min) Non-Physician Phone Call To Patient/Provider Brief (5-10min) 62007 SOFIA YANG [facility] Non-Physician Phone Call To Pt/Provider Intermed (11-20 min) Non-Physician Phone Call To Pt/Provider Intermed (11-20 min) [id number] BETTY GABRIEL [facility] Waiver services; not otherwise specified (NOS) MIGUEL A JUSTCIE [facility] Gynecologic Services Intrauterine Device (IUD) Removal Gynecologic Services Intrauterine Device (IUD) Removal 26398 MIGUEL A JUSTICE [facility] No data available for this section Ambulato ry Pharmacy Social History Combined list of available smoking, tobacco, and other social history from [facility] and [facility] facilities. Social History Type Response Date Comment [facility] e This section is an empty social history section. DoD Assessment and Plan Combined list of future care activities from [facility] of Defense and Veterans Affairs facilities (e.g., assessment and plan notes, appointments, orders, and referrals). Additional future care activities may be listed in the Plan of Care section. Result Assessment and Plan Date Source Assessment and Plan No data available for this section 04/21/2025 Ambulatory Pharmacy Functional Status Combined list of recent functional and cognitive assessments recorded at [facility] Functional Hale Measurement (FIM) Scale: 1 = Total Assistance (Subject = 0% +), 2 = Maximal Assistance (Subject = 25% +), 3 = Moderate Assistance (Subject = 50% +), 4 = Minimal Assistance (Subject = 75% +), 5 = Supervision, 6 = Modified Hale (Device), 7 = Complete Hale (Timely, Safely). Assessment Date/Time Source Assessment Type Assessment Skill Assessment Score Assessment Details No data available for this section
[2025-04-21 21:21] LABS: Free T4 Free Thyroxine 1.13 ng/dL (0.78-2.19)
[2025-04-21 21:56] LABS: Thyroid Stimulating Hormone 0.129 uIU/mL (0.465-4.680)
== END 2025-04-21 09:11 | disposition home or self-care (01) ==
LOC: ANHGOSHLAB 09:11
PROVIDERS: PCP Nurse Practitioner; Visit Provider Nurse Practitioner
DX: R23.2 Flushing (principal)
CPT/HCPCS: 36415; 84439; 84443

== ENCOUNTER 2025-06-25 17:08 | Emergency (ER) | payer BC, SELFPAY ==
--- NOTE | 2025-06-25 17:10 | ED_ITS ---
HPI - Wound/Laceration General Chief Complaint: Wound/Laceration Stated Complaint: Cut Finger Time Seen by Provider: 06/25/25 17:09 Source: patient Mode of arrival: ambulatory Limitations: no limitations History of Present Illness HPI narrative: Cassie is a 39-year-old female patient presenting to the clinic today with complaints of a cut to her right 5th medial distal finger. She reports she cut on a mandoline just prior to arrival. Tetanus is up-to-date. Bleeding is controlled. Has a flap laceration measuring approximately 1 cm. Related Data Home Medications ?Medication ?Instructions ?Recorded ?Confirmed ?Last Taken ?Type ferrous sulfate 137 mg (45 mg 137 mg PO DAILY 09/25/24 04/21/25 Unknown History iron) tablet,extended release Allergies Allergy/AdvReac Type Severity Reaction Status Date / Time Penicillins Allergy Rash Verified 06/25/25 17:20 Review of Systems Review of Systems: Pertinent positives per HPI. Patient denies any fever, chills, rash, headache, visual changes, dizziness, cough, runny nose, sore throat, shortness of breath, chest pain, palpitations, nausea, vomiting, diarrhea, constipation, abdominal pain, or any urinary issues. [facility] Past Medical History Medical History Prediabetes History of prediabetes Family History Family History Mother Diabetes mellitus Hypertension Sibling Depression Anxiety Grandparent Diabetes mellitus Social History Social History Smoking status: Never smoker Alcohol intake: current Alcohol use details: rare social Substance use type: does not use Do You Feel Safe in your Home?: Yes Lack of Transportation: No Lack of Food: Never True Current Housing: I Have Housing Concerned About Future Housing: No Difficulty Paying Gas/Electric Bills: No Difficulty Paying for Meds: No Currently Unemployed: No Education: Master's Degree or Higher Difficulty w/ Childcare or Family Care: No Living arrangements: with family Gender identity (if verbalized by the patient): Female Agree to blood products: No Comments At the time of my signature, I reviewed and agree with the nursing past medical, surgical, social, and family history. There is no relevant family history pertinent to the patient complaint. Exam Narrative: General: Well-developed, well nourished, in no apparent distress Head: Normocephalic, atraumatic. Cardio: Regular rate and rhythm, s1 and s2 normal, no murmur appreciated. Resp: Clear to auscultation bilaterally, no rhonchi, rales, wheezing or rubs. Integumentary: Coco, warm, and dry, 1 cm flap laceration to the right medial distal 5th finger Course Course Emergency Course: Portions of this record may have been created with voice recognition software. Level of Care: Express Care Visit Vital Signs Vital signs: Vital Signs Temperature 36.7 C 06/25/25 17:15 Pulse Rate 74 06/25/25 17:15 Respiratory Rate 14 06/25/25 17:15 Blood Pressure 126/90 06/25/25 17:15 Pulse Oximetry 100 06/25/25 17:15 Oxygen Delivery Room Air 06/25/25 17:15 Temperature 36.7 C 06/25/25 17:15 Pulse Rate 74 06/25/25 17:15 Respiratory Rate 14 06/25/25 17:15 Blood Pressure 126/90 06/25/25 17:15 Pulse Oximetry 100 06/25/25 17:15 Oxygen Delivery Room Air 06/25/25 17:15 Vital signs reviewed Procedures Laceration Laceration 1: Date: 06/25/25 Site: hand (left 5th finger) Side (If applicable): left Size (cm): 1 Description: flap Depth: simple, single layer Local Anesthetic: lidocaine 1% Amount of anesthesia used (mL): 0.5 Pre-repair: wound explored and irrigated ====== Skin Level ====== Skin layer closed with: nylon Size (cm): 5-0 Number of sutures: 3 Technique: simple, interrupted ====== Subcutaneous Layer ====== ====== Muscle Layer ====== ====== Tendon Layer ====== Dressing: Verbal consent obtained for laceration repair. Risk and benefits explained and patient voiced understanding. Area was cleansed with antiseptic wound wash and a 27 gauge needle was then used to instill (0.5) ml of 1% lidocaine without epi into the wound edges. Area was prepped and draped using sterile technique. A 5-0 suture on a p needle was used to place (3) interrupted sutures bringing the wound edges together- well approximated. Patient tolerated procedure well. Sterile dressing applied. MDM - Wound/Laceration MDM Narrative Medical decision making narrative: At the time of visit patient is resting comfortably on the exam table. Patient appears to be nontoxic. Complaints of a cut to her right 5th medial distal finger. She reports she cut on a mandoline just prior to arrival. Tetanus is up-to-date. Bleeding is controlled. Has a flap laceration measuring approximately 1 cm. Procedures: Laceration repair was [id number] suture was used. 3 interrupted sutures were placed bringing the wound edges well approximate. Patient tolerated procedure well. Plan: Patient has a flap laceration to the left medial distal 5th finger from a mandoline. Three interrupted sutures were placed bringing the wound edges well- approximated. Bleeding is controlled. Supportive measures were discussed with the patient and they voiced understanding discharge instructions and agrees to treatment plan. Return precautions reviewed Differential Diagnosis Differential diagnosis: Likely laceration, abscess, abrasion and avulsion of skin Discharge Plan Discharge Clinical Impression: Laceration of finger Qualifiers: Encounter type: initial encounter Finger: little finger Damage to nail status: without damage Foreign body presence: without foreign body Laterality: right Qualified Code(s): S61.216A - Laceration without foreign body of right little finger without damage to nail, initial encounter Patient Disposition: Home Condition: Stable Instructions: Antibiotic Form, Care For Your Stitches (ED), Laceration (ED) Additional Instructions: Leave bandage on for 24 hours then may remove and apply band aide covering as needed. Keep wound clean and dry Skin sutures out in 7 days. Watch for signs and symptoms of infection- redness, streaking, swelling, purulent discharge, or increase in pain. Follow up with your PCP for suture removal or return to the Express care. Patient Language: Liberian Prescriptions: No Action ferrous sulfate 137 mg (45 mg iron) tablet extended release 137 mg PO DAILY Mounjaro 5 mg/0.5 mL pen injector 5 mg subcut WEEKLY Qty: 2 3RF Follow-up/Referrals: Katie Marmolejo NP [Primary Care Provider] - Time of Disposition: 17:44 Quality [facility] Nursing Documentation ED [facility] nursing documentation: reviewed/agree
[2025-06-25 17:15] VITALS: BP 126/90; PULSE 74; RESP 14; TEMP 36.7; O2SAT 100
[2025-06-25] MEDS: LIDOCAINE 1% LOCAL INJ 2 ML AMPUL INFILTRATE (17:32)
== END 2025-06-25 17:50 | disposition home or self-care (01) ==
PROVIDERS: Emergency Provider Nurse Practitioner Family; PCP Nurse Practitioner
DX: S61.216A Laceration without foreign body of right little finger without damage to nail, initial encounter (principal); W27.4XXA Contact with kitchen utensil, initial encounter; R73.03 Prediabetes
CPT/HCPCS: 12001; 99212; G0463; J2003

== ENCOUNTER 2025-10-06 17:33 | Emergency (ER) | payer BC, SELFPAY ==
[2025-10-06 17:46] VITALS: BP 136/89; PULSE 110; RESP 16; TEMP 36.9; O2SAT 100
--- NOTE | 2025-10-06 18:04 | ED.ABDPAIN ---
HPI - Abdominal Pain General Chief Complaint: Abdominal Pain Stated Complaint: VOMITING/STOMACH PAIN/BACK PAIN Time Seen by Provider: 10/06/25 17:55 Source: patient and RN notes reviewed Mode of arrival: ambulatory Limitations: no limitations History of Present Illness HPI narrative: 40-year-old female presents to the [facility] complaining of upper abdominal pain for approximately 3 days. Patient reports that radiates to her low back. Patient also reports nausea and vomiting. Patient says symptoms are worse when she eats something. Patient says she is on monjuaro, she says has been on it for over a year, she denied any issues with that in the past. Denies any changes in her dosing recently. Patient has any fevers, body aches, chills, chest pain, difficulty breathing, left jaw pain, left arm pain, urinary symptoms, diarrhea, black tarry stools, vomiting blood, or any other symptoms. Patient does report some for increased frequency. Patient has not tried any [id number] to help with symptoms. Related Data Home Medications ?Medication ?Instructions ?Recorded ?Confirmed ?Last Taken ?Type ferrous sulfate 137 mg (45 mg 137 mg PO DAILY 09/25/24 10/06/25 Unknown History iron) tablet,extended release Allergies Allergy/AdvReac Type Severity Reaction Status Date / Time Penicillins Allergy Rash Verified 10/06/25 17:44 Review of Systems Review of Systems: CONSTITUTIONAL: Denies fever, chills, or sweats. EYES: Denies visual changes, redness, or discharge. ENT: Denies rhinorrhea, congestion, sore throat, or otalgia. CARDIOVASCULAR: Denies chest pain, palpitations, or edema. RESPIRATORY: Denies cough or dyspnea. GASTROINTESTINAL: Positive for bdominal pain, nausea, vomiting. Negative for black tarry stools, bloody stools, vomiting blood, diarrhea. GENITOURINARY: Denies dysuria or hematuria. Positive for increased frequency. SKIN: Denies rash or itching. MUSCULOSKELETAL: Denies back pain, joint pain, or myalgia. NEUROLOGIC: Denies headache, numbness, or weakness. PSYCHIATRIC: Denies anxiety or depression. All other systems reviewed are negative, except as documented in HPI. [facility] Past Medical History Medical History Prediabetes History of prediabetes Family History Family History Mother Diabetes mellitus Hypertension Sibling Depression Anxiety Grandparent Diabetes mellitus Social History Social History Smoking status: Never smoker Alcohol intake: current Alcohol use details: rare social Substance use type: does not use Do You Feel Safe in your Home?: Yes Lack of Transportation: No Lack of Food: Never True Current Housing: I Have Housing Concerned About Future Housing: No Difficulty Paying Gas/Electric Bills: No Difficulty Paying for Meds: No Currently Unemployed: No Education: Master's Degree or Higher Difficulty w/ Childcare or Family Care: No Living arrangements: with family Gender identity (if verbalized by the patient): Female Agree to blood products: No Comments At the time of my signature, I reviewed and agree with the nursing past medical, surgical, social, and family history. There is no relevant family history pertinent to the patient complaint. Exam Narrative: GENERAL: This is a well-nourished, well-developed adult, in no apparent distress. They are non ill-appearing, nontoxic appearing. HEAD: normocephalic, atraumatic. EYES: Sclera clear/white. Conjunctiva normal. Vision is grossly intact. Extraocular movements intact EARS: External ears normal, Hearing grossly intact. NOSE: External nose normal THROAT: Mucous membranes moist, NECK: Neck supple, CARDIOVASCULAR: Regular rate and rhythm without murmurs, gallops, or rubs. RESPIRATORY: Clear to auscultation. Breath sounds equal bilaterally. No wheezes, rales, or rhonchi. GASTROINTESTINAL: Abdomen soft, generalized upper abdominal pain primarily above the umbilicus. Nondistended. Bowel sounds are active. No hepato-splenomegaly, or palpable masses. No guarding or rigidity. No rebound tenderness. Negative Tavarez sign. SKIN: warm, Dry, intact with no suspicious lesions or rash, good texture and turgor. NEURO: awake, alert, and oriented to person, place and time. There were no obvious focal neurologic abnormalities. EXTREMITIES: No joint tenderness, effusion, or edema noted. BACK: Nontender without deformity. No CVA tenderness. Course Course Emergency Course: Portions of this record may have been created with voice recognition software Level of Care: Express Care Visit Vital Signs Vital signs: Vital Signs Temperature 98.5 F 10/06/25 17:46 Pulse Rate 110 H 10/06/25 17:46 Respiratory Rate 16 10/06/25 17:46 Blood Pressure 136/89 10/06/25 17:46 Pulse Oximetry 100 10/06/25 17:46 Temperature 98.5 F 10/06/25 17:46 Pulse Rate 110 H 10/06/25 17:46 Respiratory Rate 16 10/06/25 17:46 Blood Pressure 136/89 10/06/25 17:46 Pulse Oximetry 100 10/06/25 17:46 Reviewed MDM - Abdominal Pain MDM Narrative Medical decision making narrative: Patient like her urine checked for UTI, she has no urinary symptoms other than frequency, she does have back pain and nausea and vomiting with upper abdominal pain. Urinary dipstick show trace leukocytes, 1+ protein, trace blood, ketones and bilirubin. Urine culture is pending from like to wait for culture results prior antibiotic therapy. No peritoneal findings on exam. Patient reports some upper abdominal pain radiates to her back. Symptoms could be related to her mounjaro. Offered patient ER transfer for further evaluation and management of her symptoms including when on limited to getting lab work advanced imaging performed for symptoms. Patient like to follow-up with her PCP, will send her home on all Zofran, For nausea and vomiting, and her home with with Pepcid. Advised patient of pain gets worse, uncontrollable nausea vomiting, fevers, dehydration,, or any serious concerns go to the ER immediately. Discussed physical exam findings. Advised supportive measures and signs/symptoms to go to the ER. Pt is appropriate for outpt treatment and f/u. Differential Diagnosis Differential diagnosis: Likely gastroenteritis and other (Gastroparesis, cholecystitis, gallstones, pancreatitis, gastritis) Lab Data Labs: Lab Results 10/06/25 Range/Units 18:11 POC Urine Color Yellow POC Urine Clarity Clear POC Urine pH 5.0 POC Ur Specif Hopkins 1.030 POC Urine Protein 1+ (Negative) POC Ur Glucose (UA) Negative (Negative) POC Urine Ketones 1+ (Negative) POC Urine Blood Trace (Negative) POC Urine Nitrite Negative (Negative) POC Urine Bilirubin 1+ (Negative) POC Urine Urobilinogen 0.2 POC U Leukocyte Esteras Trace (Negative) Critical Care Time Critical Care Time Critical Care Time: No Discharge Plan Discharge Clinical Impression: Upper abdominal pain Nausea & vomiting Qualifiers: Vomiting type: unspecified Qualified Code(s): R11.2 - Nausea with vomiting, unspecified Patient Disposition: Home Condition: Stable Instructions: Abdominal Pain (ED) Additional Instructions: Take Zofran as needed for nausea and vomiting. Take Pepcid as directed. Drink plenty of fluids, supplement with electrolyte solutions such as Pedialyte. Eat as tolerated. If symptoms could be related to your mounjaro, talk to her doctor about this medication. Follow-up with your PCP in 2-3 days. Please go to the ER if you develop worsening abdominal pain, chest pains and breathing problems, uncontrollable nausea vomiting, fevers, or any serious concerns. Patient Language: Polish Prescriptions: No Action ferrous sulfate 137 mg (45 mg iron) tablet extended release 137 mg PO DAILY Mounjaro 5 mg/0.5 mL pen injector 5 mg subcut WEEKLY Qty: 2 3RF Follow-up/Referrals: Katie Marmolejo APRN [Primary Care Provider, Internal Medicine]
[2025-10-06 18:14] LABS: EDUAAPPEAR Clear; EDUABILI 1+ (Negative); EDUABLOOD Trace (Negative); EDUACOLOR1 Yellow; EDUAGLUCOSE Negative (Negative); EDUAKETONE 1+ (Negative); EDUALEUKO Trace (Negative); EDUANITRATE Negative (Negative); EDUAPH 5.0; EDUAPROTEIN 1+ (Negative); EDUASPGRAVITY 1.030; EDUAUROBILI 0.2
== END 2025-10-06 18:25 | disposition home or self-care (01) ==
PROVIDERS: PCP Nurse Practitioner
DX: R10.10 Upper abdominal pain, unspecified (principal); R11.2 Nausea with vomiting, unspecified; R73.03 Prediabetes
CPT/HCPCS: 81003; 87086; 99213; G0463

== ENCOUNTER 2025-10-08 09:13 | Outpatient (CLI) | payer BC, SELFPAY ==
--- OUTSIDE RECORDS SUMMARY | 2025-10-08 09:16 | XMS_ITS | Clinical Summary ---
Author Organization [facility] Address [address] [place] [address] Phone Care Team Providers Care Car Attendant Name Role Phone Unknown, Notinfile Primary Care Provider Unavail able Allergies Active Allergy Reactions Criticality Noted Date Comments Penicillins Rash Medium 09/13/2025 Medications ferrous sulfate ER (SLOW IRON) 142 mg (45 mg of elemental iron) tablet Take 137 mg by mouth 4 Active Mounjaro 5 mg/0.5 mL pen injector injection INJECT 5 MG (0.5 ML) SUBCUTANEOUSLY WEEKLY 5 Active Active Problems No known active problems Encounters Date Type Department Care Team Description 09/17/2025 Results Follow-Up [facility] at [address] [id number] Tom Saeed NP Pap and HPV, reflex to HPV Genotypes 09/13/2025 8:00 AM CDT Office Visit [facility] at [address] [id number] Tom Saeed NP Well woman exam (Primary Dx); Encounter for screening mammogram for breast cancer from Last 3 Months Medical History Medical History Date Comments Hyperglycemia Prediabetic Family History Medical History Relation Name Comments Diabetes type II Father Diabetes type II Mother Hypertension Mother Relation Name Status Comments Father Mother Social History Tobacco Use Types Packs/Day Years Used Date Smoking Tobacco: Never Smokeless Tobacco: Never Tobacco Cessation:Counseling Given: Not Answered Alcohol Use Standard Drinks/Week Comments Yes 0 (1 standard drink = 0.6 oz pur e alcohol) PHQ-2 Answer Date Recorded PHQ-2 Total Score 0 09/13/2025 AUDIT-C Answer Date Recorded Q1: How often do you have a drink containing alc ohol? Monthly or less 09/13/2025 Q2: How many drinks containi ng alcohol do you have on a typical day when you are drinking? 1 or 2 09/13/2025 Q3: How often do you have si x or more drinks on one occasion? 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 Gender Identity Not on file Sexual Orientation Not on file Obstetrics History Para Term AB IAB SAB Ectopic Multiple Livin g Live Births 2 1 1 1 1 1 Date Outcome GA Total Labor Labor/2nd/3rd Weight Sex Type Anes PTL [place] A1 A5 Name Clin 2014 SAB 016 Term 39w 0d F Vagina l Epidur al Complications:Gestational di abetes Last Filed Vital Signs Vital Sign Reading Time Taken Comments Blood Pressure 108/70 09/13/2025 8:21 AM CDT Pulse - - Temperature - - Respiratory Rate - - Oxygen Saturation - - Inhaled Oxygen Concentration - - Weight 70.3 kg (155 lb) 09/13/2025 8:21 AM CDT Height 175.3 cm (5' 9) 09/13/2025 8:21 AM CDT Body Mass Index 22.89 09/13/2025 8:21 AM CDT Plan of Treatment Health Maintenance Due Date Last Done Comments Hepatitis C Screening 1986 Varicella Vaccines (2 of 2 - 13+ 2-dose series) 04/03/2010 03/06/2010 HPV Vaccines (1 - 3-dose SCDM series) 2013 Cervical Cancer Screening 09/13/2026 09/13/2025 Depression Screening 09/13/2026 09/13/2025 Regular Well Visit/Exam 18-64 09/13/2026 09/13/2025 DTaP/Tdap/Td Vaccine (4 - Td or Tdap) 01/28/2035 01/28/2025, 08/10/2016, 08/16/2010, Additional history exists Hepatitis B Screening Completed 03/10/2003 Influenza Vaccine Completed 08/05/2025, , 09/22/2021, Additional history exists Covid-19 Vaccine Completed 09/04/2025, 09/2023, 10/03/2021, Additional history exists Pneumococcal vaccine <65 Aged Out No longer eligible based on patient's age to complete this topic Procedures Procedure Name Priority Date/Time Associated Diagnosis Comments PAP AND HPV, REFLEX TO HPV GENOTYPES Routine 09/13/2025 8:56 AM CDT Well woman exam from Last 3 Months Results * Pap and HPV, reflex to HPV Genotypes (09/13/2025 8:56 AM CDT) CLINICAL INFORMATION: [facility] Comment:WELL WOMAN LMP [facility] Comment:08/27/25 Previous Pap [facility] Comment:NONE GIVEN Prev. Bx [facility] Comment:NONE GIVEN SOURCE: [facility] Comment:Cervix, Endocervix Pap, specimen adequacy [facility] Comment: Satisfactory for evaluation. Endocervical/transformation zone component present. Age and/or menstrual status not provided HPV interp [facility] Comment: Cytology Results: Negative for intraepithelial lesion or malignancy. COMMENTS [facility] Comment: This Pap test has been evaluated with the ThinPrep(R) Imaging System. Network Control Operator [facility] Comment: YQ, CT(ASCP) CT Screening Location: [place] [address] [place] [address] CLIA: [id number] Slide preparation performed at: [facility], [address] [place] [address], [address] CLIA: [id number] Review quality assurance manager [facility] Comment: KMS, CT(ASCP) CT Screening Location: [place] [address] [place] [address] CLIA: [id number] Slide preparation performed at: [facility], [address] [place] [address], [address] CLIA: [id number] Comment [facility] Comment: EXPLANATORY NOTE: The Pap is a screening test for cervical cancer. It is not a diagnostic test and is subject to false negative and false positive results. It is most reliable when a satisfactory sample, regularly obtained, is submitted with relevant clinical findings and history, and when the Pap result is evaluated along with historic and current clinical information. Human papillomavirus DNA, High Risk E6/E7 Not Detected NOT DETECTED [facility] Comment: Not Detected High Risk HPV types (16,18,31,33,35,39,45,51,52, 56,58,59,66,68) were not detected. Other HPV types which cause anogenital lesions may be present. The significance of the other types of HPV in malignant processes has not been established. Methodology: Real Time PCR Thin prep-Endocervica l 09/13/2025 8:56 AM CDT 09/14/2025 2:23 PM CDT Tom Saeed NP LAB CYTOLOGY ORDERABLES Final Result [facility] [address] [place] [address] [place] [address] [place] [address] from Last 3 Months Insurance [email or web address] Care Teams Car Attendant Relationship Specialty Start Date End Date Unknown, Notinfile PCP - General 10/31/22
--- OUTSIDE RECORDS SUMMARY | 2025-10-08 09:16 | XMS_ITS | Encounter Summary ---
Author Organization [facility] Address [address] [place] [address] Care Team Providers Care Licensed Prosthetist/Orthotist Name Role Phone Unknown, Notinfflavia Primary Care Provider Unavail able Encounter Details Date Type Department Care Team (Late st Contact Info) Description 09/17/2025 Results Follow-Up 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
[2025-10-08 11:33] LABS: Hematocrit 40.0 % (37.0-47.0); Hemoglobin 13.1 g/dL (12.0-15.0); Immature Granulocyte Percent A 0.1 % (0-0.5); Lymphocytes Absolute Auto 1.55 K/mm3 (0.9-3.2); Mean Corpuscular HGB Conc 32.8 g/dl (32-36); Mean Corpuscular Hemoglobin 29.9 pg (26-34); Mean Corpuscular Volume 91.3 fl (80-100); Nucleated Red Blood Cells Absolute Auto 0.000 K/mm3 (0.0-0.012); Nucleated Red Blood Cells Perc 0.0 % (0.0-0.2); Platelet Count Result 227 k/mm3 (150-375); Red Blood Count 4.38 M/mm3 (4.2-5.4); White Blood Count 6.9 K/mm3 (4.5-10.0)
[2025-10-08 11:51] LABS: Alanine Aminotransferase 11 U/L (6-35); Albumin Level 4.3 g/dL (3.5-5.1); Alkaline Phosphatase 59 U/L (38-126); Alkaline Phosphatase 63 U/L (38-126); Anion Gap 9 mmol/L (4-12); Aspartate Amino Transferase 38 U/L (14-36); Bilirubin,Total 0.8 mg/dL (0.2-1.3); Bilirubin,Total 0.9 mg/dL (0.2-1.3); Blood Urea Nitrogen 9 mg/dL (7-17); Calcium 8.9 mg/dL (8.4-10.2); Carbon Dioxide 26 mmol/L (22-30); Chloride 103 mmol/L (98-107); Estimated Glomerular Filt Rate > 60; Glucose 121 mg/dL (65-110); Potassium 4.3 mmol/L (3.4-5.0); Sodium 138 mmol/L (137-145); Total Protein 7.5 g/dL (6.3-8.2)
[2025-10-08 12:06] LABS: Free T4 Free Thyroxine 1.22 ng/dL (0.78-2.19)
[2025-10-08 12:27] LABS: Thyroid Stimulating Hormone 2.970 uIU/mL (0.465-4.680)
== END 2025-10-08 09:14 | disposition home or self-care (01) ==
LOC: ANHGOSHLAB 09:14
PROVIDERS: PCP Nurse Practitioner
DX: R74.01 Elevation of levels of liver transaminase levels (principal); R79.89 Other specified abnormal findings of blood chemistry; R10.9 Unspecified abdominal pain
CPT/HCPCS: 36415; 80053; 80076; 84439; 84443; 85025